=== PATIENT | male | born 1955 | race Caucasian/White ===

== ENCOUNTER 2025-04-26 13:08 | Outpatient (AMB) | payer MEDICARE, BC, SELFPAY ==
--- NOTE | 2025-04-26 13:10 | MHC.OFFVIS ---
Intake Visit Reasons: balance problem Allergies lisinopril Allergy (Verified 04/25/25 17:50) Cough HPI Comments Details: This is a 70-year-old man with a history of atrial fibrillation on anticoagulation, hypertension, type 2 diabetes, depression and a long history of alcohol abuse drinking 8-10 drinks a day for most of his life. He comes in because of multiple falls, mostly down the stairs over the last 10 years with increased frequency of falling, with the last fall being in December 2024. No injuries are reported. In the last year, he has noted increased problems with his balance on level ground if it is uneven. Some days he can walk better. He denies any numbness or paresthesia in his feet and legs. There is no family history of ataxia. He has never had a stroke. [facility] Medical History (Updated 04/26/25 @ 13:33 by Augusto Owens MD) Pure hypercholesterolemia Essential (primary) hypertension Mitral valve disorder Chest pain Atrial fibrillation Hypothyroid Rosacea Retina disorder Erectile dysfunction Diabetes mellitus with renal complications Diabetes mellitus with peripheral vascular disease BPH (benign prostatic hyperplasia) Diverticulosis Obesity (BMI 30.0-34.9) Enlarged prostate OTILIO (obstructive sleep apnea) Proteinuria Type 2 diabetes mellitus with obesity Moderate major depression Alcohol dependence in remission SOB (shortness of breath) CHF (congestive heart failure) Abnormal EKG Insomnia Surgical History (Updated 04/25/25 @ 17:47 by Santa Dougherty MA) Hx of tonsillectomy H/O knee surgery H/O colonoscopy Hx of cataract extraction Family History (Updated 04/25/25 @ 17:50 by Santa Dougherty MA) Mother Coronary artery disease Father Atrial fibrillation Daughter Asthma Brother Hypertension Brother Prostate cancer Social History (Updated 04/25/25 @ 17:48 by Santa Dougherty MA) Alcohol intake: current Patient Tobacco Use Status: Never used Tobacco Review of Systems Const Details: Sleep Difficulty getting to sleep??denies.??Difficulty maintaining sleep??denies?.??Urge to move legs??denies.?? Teeth grinding??denies.??Shouting or Kicking during sleep??denies.??Abnormal behavior during sleep??denies.?? Excessive sleep??denies.??Snoring??denies.??Daytime sleepiness??denies.? General/Constitutional Change in appetite??denies.??Chills??denies.??Fatigue??denies.??Fever??denies.??Weight gain??denies.??Weight loss??denies.? Ophthalmologic Blurred vision??denies.??Diminished visual acuity??denies.? ENT Stuffiness??denies.??Decreased hearing??denies.??Dry mouth??denies.??Ear pain??denies.??Nosebleed??denies.?? Ringing in the ears??denies.??Sinus pain??denies.??Sore throat??denies.??Swollen glands??denies.? Endocrine Cold intolerance??denies.??Excessive thirst??denies.??Frequent urination??denies.??Heat intolerance??denies.? Respiratory Shortness of breath??denies.??Chest pain??denies.??Cough??denies.? Breast Breast lump??denies.??Nipple discharge??denies.? Cardiovascular Chest pain at rest??denies.??Chest pain with exertion??denies.??Claudication??denies.??Dizziness??denies.??Fluid accumulation in the legs??denies.??Irregular heartbeat??denies.??Palpitations??denies.? Gastrointestinal Abdominal pain??denies.??Constipation??denies.??Diarrhea??denies.?? Difficulty swallowing??denies.??Heartburn??denies.??Nausea??denies.??Rectal bleeding??denies.? Hematology Easy bruising??denies.??Prolonged bleeding??denies.? Genitourinary Frequent urination??denies.??Urgency??denies.??Incontinence??denies.??Erectile Dysfunction??denies.? Musculoskeletal Neck pain??denies.??Back pain??denies.??Muscle aches??denies.??Painful joints??denies.??Sciatica??denies.??Weakness??denies.? Podiatric Difficulty walking??denies.??Foot numbness??denies.? Neurologic Difficulty swallowing??denies.??Balance difficulty??admits.??Coordination??normal.? Difficulty speaking??denies.??Dizziness??denies.??Fainting??denies.??Gait abnormality??admits.??Headache??denies.? Loss of strength??denies.??Loss of use of extremity??denies.??Low back pain??denies.?? Memory loss??denies.??Seizures??denies.??Tics??denies.??Tingling/Numbness??denies.??Transient loss of vision??denies.??Tremor??denies.? Psychiatric Anxiety??denies.??Auditory/visual hallucinations??denies.??Delusions??denies.??Depressed mood?admits.??Stressors??denies.??Substance abuse??alcohol.??Suicidal thoughts??denies. Physical Exam Neuro Other: Abnormal neurological findings:??Truncal ataxia on tandem walking ? Mental Status:?alert and oriented X 3,?Normal attention, orientation, memory and affect.? Cranial Nerves:?Pupils are equal, round and reactive to light. Fundoscopy shows normal disc bilaterally. External ocular muscles are intact. Visual carson are full, no ptosis. Face is symmetrical, no facial weakness or droop. Facial sensations are normal. Tongue protrudes in midline. Palate elevates symmetrically. Shoulder shrugging is normal..? Motor Examination:?Normal muscle tone, bulk and strength,?No atrophy or fasciculations,?No drift of the extended upper extremities,?Deep tendon reflexes are 2+and absent ankle reflexes.?Plantars are equivocal extensors bilaterally. Motor Strength:? Proximal Muscles (out of 5):?5 Distal Muscles (out of 5):?5 Neck Flexors (out of 5):?5 Neck Extensors (out of 5):?5 Deltoid (out of 5):?5 Biceps (out of 5):?5 Triceps (out of 5):?5 Serratus Anterior (out of 5):?5 Wrist Extensors (out of 5):?5 APB (out of 5):?5 Finger Spread (out of 5):?5 Ileopsoas (out of 5):?5 Quadriceps (out of 5):?5 Hamstrings (out of 5):?5 Tibialis Anterior (out of 5):?5 Peronei (out of 5):?5 EDB (out of 5):?5 Gastrocnemius (out of 5):?5 Straight Leg Raising:?90 degrees.? Sensory Exam:?Normal light touch, temperature, pinprick, vibration and joint-position sensations?,?Rhomberg sign is absent.? Coordination:?no ataxia,?no titubation,?[id number], [id number] test and rapid alternating movements were normal.? Gait Exam:?broad based gait with tandem ataxia.? Cerebellar Signs:?Brkclh-[id number]-[id number] and tbhk-ey-hjqv is normal,?no dysdiadochokinesia?.? Extrapyramidal System:?No tremor, rigidity with normal facial expressions,?No bradykinesia, no bradyphrenia. Normal arm swing and posture. No propulsion or retropulsion.? Speech:?Normal,?no dysphasia or dysarthria.. Mini Mental Status Exam Level of Consciousness:?Alert.? Orientation:?Knows correct year, month, date, day and season,?Knows correct city, county and state. Knows correct location and floor.? Registration:?Able to register 3 objects.? Attention:?Serial 7's performed accurately.? Recall:?Able to recall 3 out of 3 objects.? Language:?Normal spontaneous speech, fluency, repetition, ,naming, comprehension, reading and writing.? Total Score:?30/30. 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
--- OUTSIDE RECORDS SUMMARY | 2025-04-26 14:11 | XMS_ITS | Clinical Summary ---
Author Organization [facility] [address] [place] Address [address] [place] [address] Phone Care Team Providers Care Professor Of Theater Name Role Phone Fredrick Corral MD Primary Care Provider [phone] Allergies Active Allergy Reactions Criticality Noted Date Comments Lisinopril Cough,Other Low 05/22/2016 cough Medications coffee xt/phosphatidyl serine (NEURIVA ORIGINAL ORAL) Take 1 capsule by mouth 1 (one) time each day. Active benzonatate (TESSALON) 100 mg capsule Take 1 capsule (100 mg total) by mouth. 06/25/20 24 Active loratadine (CLARITIN) 10 mg tablet Take 1 tablet (10 mg total) by mouth. Active atenoloL (TENORMIN) 100 mg tabletIndication s:Essential (primary) hypertension Take 1 tablet (100 mg total) by mouth 1 (one) time each day. 90 tablet 1 10/29/19 25 Active atorvastatin (LIPITOR) 80 mg tablet Take 1 tablet (80 mg total) by mouth 1 (one) time each day. 90 each 1 10/29/19 25 025 Active doxycycline (ORACEA) 40 mg capsule Take 1 capsule (40 mg total) by mouth 1 (one) time each day in the morning. 90 each 10/29/19 25 025 Active metFORMIN XR (GLUCOPHAGE-XR) 500 mg 24 hr tablet Take 1 tablet (500 mg total) by mouth 1 (one) time each day. 90 each 1 10/29/19 25 025 Active Synthroid 100 mcg tablet Take 1 tablet (100 mcg total) by mouth 1 (one) time each day. 90 tablet 1 10/29/19 25 Active tadalafiL (CIALIS) 5 mg tablet Take 1 tablet (5 mg total) by mouth 1 (one) time each day. 90 each 1 10/29/19 25 025 Active traZODone (DESYREL) 50 mg tabletIndication s:Major depressive disorder, recurrent, moderate (CMS/HCC V24, CMS/HCC V28) Take 1 tablet (50 mg total) by mouth at bedtime. 90 tablet 1 10/29/19 25 025 Active docosahexaenoic acid/epa (FISH OIL ORAL) Take by mouth. Active multivit-min/fol ic acid/lutein (CENTRUM SILVER ORAL) Take by mouth. Active apixaban (Eliquis) 5 mg tabletIndication s:Atrial fibrillation, unspecified type (CMS/HCC V24, CMS/HCC V28) Take 1 tablet (5 mg total) by mouth 2 (two) times a day. 180 each 3 02/29/20 25 Active sertraline (ZOLOFT) 100 mg tablet TAKE 1 TABLET DAILY 90 tablet 1 03/22/20 25 Active losartan (COZAAR) 25 mg tablet TAKE 1 TABLET DAILY 90 tablet 1 03/22/20 25 Active magnesium aspart,citrate,o xide 400 mg magnesium capsuleIndicatio ns:Hypomagnesemi a Take 1 capsule by mouth at bedtime. 90 capsule 1 04/08/20 25 Active furosemide (LASIX) 40 mg tablet TAKE 1 TABLET BY MOUTH 1 TIME EACH DAY. 90 tablet 04/13/20 25 Active furosemide (LASIX) 40 mg tablet Take 1 tablet (40 mg total) by mouth 1 (one) time each day. 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 I reconnected the seen in my office by asking him to take a couple of heart models off of a low stoop and placed him on the countertop. He bent over and immediately held his breath for at least 10 seconds before reporting dyspnea. He has negligible breathlessness walking on an incline though a flight of stairs has been associated with mild fleeting breathlessness in the setting of deconditioning. Orders: ECG 12 lead Transthoracic echocardiogram (TTE) complete with PRN contrast, bubble, strain, and 3D order panel; Future Alcohol dependence in remission ([facility] V24, S/[facility] V28) 08/03/2020 Assessment & Plan (11/16/2024 3:21 PM EST): I have encouraged the patient to reduce alcohol consumption. I will be rechecking his echocardiogram to rule out the development of systolic dysfunction. Moderate major depression ([facility] V24, [facility] V28) 10/29/2019 Type 2 diabetes mellitus wit h obesity ([facility] V24, [facility] V28) 10/29/2019 Proteinuria 08/27/2018 Obstructive sleep apnea 06/24/2017 Overview (07/05/2024): Did not raquel cpap SMS Home Polysomnogram: Date 06/21/2017; AHI 9, Unclassified apneas 1; Obstructive apneas 29; Central apneas 1; Mixed apneas 0; hypopneas 21; average oxygen saturation 95% (lowest 85% without saturations <88% for 5% or more of study) Assessment & Plan (11/16/2024 3:21 PM EST): Orders: ECG 12 lead Enlarged prostate 02/17/2017 Overview (07/05/2024): Saw urology Obesity (BMI 30.0-34.9) 05/22/2016 Diverticulosis 08/20/2015 BPH (benign prostatic hyperplasia) 12/15/2014 Diabetes mellitus with perip heral vascular disease ([facility] V24, [facility] V28) 12/15/2014 Diabetes mellitus with renal complications ([facility] V24, [facility] V28) 12/15/2014 Erectile dysfunction 12/15/2014 Retina disorder 12/15/2014 Rosacea 12/15/2014 Hypothyroid 12/04/2012 Assessment & Plan (04/06/2025 10:28 AM EDT): Depression 07/04/2008 Alcohol abuse 01/17/2006 Atrial fibrillation (CMS/HCC V24, CMS/HCC V28) 0 01/17/2006 Overview (11/15/2024): Normal EF by echo June 2021, biatrial enlargement, LVH. No significant valve disease. Patient has persistent atrial fibrillation treated with rate control and anticoagulation in the form of Eliquis. Assessment & Plan (04/06/2025 10:28 AM EDT): Assessment & Plan (11/16/2024 3:21 PM EST): Continue with rate control and systemic anticoagulation. Atrial fibrillation may potentially be contributing to mild breathlessness. I suspect that the patient's peripheral edema is largely due to venous insufficiency rather than congestive heart failure. He does not have jugular venous distention or HJR and he is not had evidence of pulmonary vascular congestion in the past. I will update his echocardiogram. Orders: ECG 12 lead Transthoracic echocardiogram (TTE) complete with PRN contrast, bubble, strain, and 3D order panel; Future Chest pain 01/17/2006 Overview (07/05/2024): 04/30--Abnormal mibi, Cath neg Mitral valve disorder 01/17/2006 Overview (07/05/2024): IMO update Essential hypertension, benign 01/17/2006 Overview (11/15/2024): Longstanding HTN with a favorable response to medical therapy. Excessive salt ingestion has likely been a contributor. Assessment & Plan (11/16/2024 3:21 PM EST): We will continue the present medical therapy. I had an extensive conversation with the patient regarding sodium consumption and the presence of sodium and foods which are commonly ingested in his diet. Orders: ECG 12 lead Pure hypercholesterolemia 01/17/2006 Assessment & Plan (04/06/2025 10:28 AM EDT): Orders: Lipid panel with reflex to direct LDL; Future Encounters Date Type Department Care Team Description 04/22/2025 Telephone Internal Medicine - [address] [phone] Kaitlyn French MA faxed form ([facility]) 04/05/2025 3:30 PM EDT Office Visit Internal Medicine - [address] [phone] Shruthi Morgan PA Routine general medical examination at a [facility] facility (Primary Dx); Type 2 diabetes mellitus without complication, without long-term current use of insulin ([facility] V24, CMS/[facility] V28); Primary hypertension; Atrial fibrillation, unspecified type (CMS/HCC V24, CMS/HCC V28); Pure hypercholesterolemia; Hypothyroidism, unspecified type; Anxiety and depression 02/28/2025 3:30 PM EDT Office Visit Internal Medicine [address] [phone] Manuel Justin NP Balance problem (Primary Dx); Insomnia, unspecified type; Major depressive disorder, recurrent, moderate (CMS/HCC V24, CMS/HCC V28); Congestive heart failure, unspecified HF chronicity, unspecified heart failure type (CMS/HCC V24, CMS/HCC V28); Atrial fibrillation, unspecified type (CMS/HCC V24, CMS/HCC V28); Rosacea; Essential (primary) hypertension; Pure hypercholesterolemia; Diabetes mellitus with peripheral vascular disease (CMS/HCC V24, CMS/HCC V28); Hypothyroidism, unspecified type; Benign prostatic hyperplasia with lower urinary tract symptoms, symptom details unspecified from Last 3 Months Immunizations Name Administration Dates Next Due Influenza trivalent, with pr eservative (Fluzone; Afluria) 6mo and older 08/23/2024 66. com SARS-CoV-2 COVID-19, mRNA, LNP-S, preservative free 08/23/2024 Surgical History Surgery Date Site/Laterality Comments KNEE SURGERY PROCEDURE: HISTORICAL KNEE SURGERY; COMMENT: Left arthroscopy TONSILLECTOMY PROCEDURE: HISTORICAL TONSILLECTOMY CATARACT EXTRACTION PROCEDURE: HISTORICAL CATARACT REMOVAL; COMMENT: bilat COLONOSCOPY 07/16/10 PROCEDURE: HISTORICAL COLONOSCOPY; COMMENT: adenoma and tics; repeat in five years COLONOSCOPY 08/16/15 PROCEDURE: HISTORICAL COLONOSCOPY; COMMENT: tics; repeat in ten yrs Medical History Medical History Date Comments Atrial fibrillation (CMS/HCC V24, CMS/HCC V28) 01/17/2006 DX:Atrial fibrillation (HCC) ; COMMENT: Normal EF by echo 2004 Essential hypertension, benign 01/17/2006 D X:Essential hypertension, benign Alcohol abuse, unspecified 01/17/2006 DX:Al cohol abuse, unspecified Pure hypercholesterolemia 01/17/2006 DX:Pur e hypercholesterolemia Mitral valve disorders(424.0) 01/17/2006 DX :Mitral valve disorders(424.0); COMMENT: Abx prophylaxis Personal history of colonic polyps 01/17/2006 DX:Personal history of colonic polyps Chest pain, unspecified 01/17/2006 DX:Chest pain, unspecified; COMMENT: 04/30--Abnormal mibi, Cath neg BPH (benign prostatic hyperplasia) 12/15/2014 DX:BPH (benign prostatic hyperplasia) Erectile dysfunction 12/15/2014 DX:Erectile dysfunction Retina disorder 12/15/2014 DX:Retina disord er Diverticulosis 08/20/2015 DX:Diverticulosi s Enlarged prostate 02/17/2017 DX:Enlarged pr ostate; COMMENT: Saw urology Depressive disorder DX:Depressiv e disorder Family History Medical History Relation Name Comments Hypertension Brother Prostate cancer Brother Asthma Daughter Other: Atrial Fibrillation Father Coronary artery disease Mother 50's No Known Problems Sister Relation Name Status Comments Brother Alive Daughter Alive Father Mother Sister Alive Social History Tobacco Use Types Packs/Day Years Used Date Smoking Tobacco: Never Smokeless Tobacco: Never Tobacco Cessation:Counseling Given: Not Answered Alcohol Use Standard Drinks/Week Comments Yes 0 (1 standard drink = 0.6 oz pure alcohol) intermittent - a week or to alot, and then a week or 2 without any Sex and Gender Information Value Date Recorded Sex Assigned at Not on file Legal Sex Male 6:08 PM EST Gender Identity Not on file Sexual Orientation Not on file Obstetrics History Last Filed Vital Signs Vital Sign Reading Time Taken Comments Blood Pressure 122/82 04/05/2025 3:17 PM EDT Pulse 68 04/05/2025 3:17 PM EDT Temperature 36.9 C (98.4 F) 04/05/2025 3:17 PM EDT Respiratory Rate - - Oxygen Saturation 98% 04/05/2025 3:17 PM EDT Inhaled Oxygen Concentration - - Weight 93.4 kg (206 lb) 04/05/2025 3:17 PM EDT Height 180.3 cm (5' 11 ) 04/05/2025 3:17 PM EDT Body Mass Index 28.73 04/05/2025 3:17 PM EDT Plan of Treatment Upcoming Encounters Date Type Department Care Team (Late st Contact Info) Description 05/16/2025 3:30 PM EDT Ancillary Procedure [facility] [address] [facility] [address] [place] [phone] 05/26/2025 3:10 PM EDT Office Visit [facility] - [facility] [address] [place] [phone] Kyle Schaeffer NP [address] [place] [address] [address] [place] [address] 06/30/2025 2:00 PM EDT Office Visit Internal Medicine - [place] [address] [facility] [address] [place] [phone] Manuel Justin NP [address] [facility] [address] [place] [address] Health Maintenance Due Date Last Done Comments Hepatitis A Vaccines (1 of 2 - Risk 2-dose series) 1974 Social Influencers of Health Screening 10/05/2022 Diabetes: Annual Foot Exam 11/07/2023 11/07/2022 COVID-19 Vaccine ( season) 2024 08/23/2024, 08/11/2023, 09/07/2022, Additional history exists Influenza Vaccine (#1) 2025 , 08/11/2023, 07/08/2022, Additional history exists Colorectal Cancer Screening: Colonoscopy 08/16/2025 08/16/2015 Diabetes: Blood Sugar Control Test (HGBA1C) 10/07/2025 04/07/2025, 10/29/2024, 06/25/2024, Additional history exists Diabetes: Annual Retina Eye Exam 02/17/2026 02/17/2025, 07/27/2024, 08/03/2020 Depression Screening 04/05/2026 04/05/2025, 10/15/20 23 Falls Risk Assessment 04/05/2026 04/05/2025, 023 Medicare Annual Wellness Visit 04/05/2026 04/05/2025 Diabetes: Annual Urine Albumin-Creatinine Ratio (uACR) 04/07/2026 04/07/2025, 02/24/2024 Diabetes: Annual GFR (Glomerular Filtration Rate) 04/07/2026 04/07/2025, 10/29/2024, 06/25/2024, Additional history exists Hypertension/CHF/CAD Annual BMP Blood Test 04/07/2026 04/07/2025, 10/29/2024, 06/25/2024, Additional history exists Cholesterol Screening (Lipid Panel) 04/07/2030 04/07/2025, 02/24/2024, 02/24/2024 DTaP,Tdap,and Td Vaccines (4 - Td or Tdap) 09/27/2031 09/27/2021, 09/13/2011, 07/31/2004 Hepatitis C Screening Completed 08/26/2013 Pneumococcal Vaccine: 50+ Years Completed 10/29/2019, 07/22/2019, 07/13/2018, Additional history exists Zoster Vaccines Completed 04/24/2020, 01/2020, 06/30/2013 RSV Immunization Adult Patients Completed 09/10/2023 HIB Vaccines Aged Out No longer eligi ble based on patient's age to complete this topic HPV Vaccines Aged Out No longer eligi ble based on patient's age to complete this topic Hepatitis B Vaccines Aged Out No long er eligible based on patient's age to complete this topic IPV Vaccines Aged Out No longer eligi ble based on patient's age to complete this topic MMR Vaccines Aged Out No longer eligi ble based on patient's age to complete this topic Meningococcal ACWY Vaccine Aged Out N o longer eligible based on patient's age to complete this topic Meningococcal B Vaccine Aged Out No l onger eligible based on patient's age to complete this topic RSV Immunization Patients Under 20 months Aged Out No longer eligible based on patient's age to complete this topic Varicella Vaccines Aged Out No longer eligible based on patient's age to complete this topic Procedures Procedure Name Priority Date/Time Associated Diagnosis Comments MICROALBUMIN CREATININE URINE RATIO Routine 04/07/2025 10:54 AM EDT Type 2 diabetes mellitus without complication, without long-term current use of insulin ([facility] V24, [facility] V28) Primary hypertension CBC WITH AUTO DIFFERENTIAL Routine 04/07/2025 10:18 AM EDT Type 2 diabetes mellitus without complication, without long-term current use of insulin ([facility] V24, [facility] V28) COMPREHENSIVE METABOLIC PANEL Routine 04/07/2025 10:18 AM EDT Type 2 diabetes mellitus without complication, without long-term current use of insulin ([facility] V24, CMS/[facility] V28) Primary hypertension HEMOGLOBIN A1C Routine 04/07/2025 10:18 AM EDT Type 2 diabetes mellitus without complication, without long-term current use of insulin ([facility] V24, [facility] V28) VITAMIN B12 Routine 04/07/2025 10:18 AM EDT Type 2 diabetes mellitus without complication, without long-term current use of insulin ([facility] V24, [facility] V28) MAGNESIUM Routine 04/07/2025 10:18 AM EDT Primary hypertension LIPID PANEL WITH REFLEX TO DIRECT LDL Routine 04/07/2025 10:18 AM EDT Pure hypercholesterolemia CBC AND DIFFERENTIAL Routine 04/07/2025 10:18 AM EDT Type 2 diabetes mellitus without complication, without long-term current use of insulin ([facility] V24, [facility] V28) EXTERNAL DIABETIC RETINA EYE EXAM 02/17/2025 DEPRESSION SCREENING Routine 10/15/2023 FALLS RISK ASSESSMENT Routine 10/15/2023 DIABETES FOOT EXAM Routine 11/07/2022 COLONOSCOPY Routine 08/16/2015 HEPATITIS C SCREENING Routine 08/26/2013 from Last 3 Months or Most Recently Relevant to Health Maintenance Results * (ABNORMAL) Microalbumin creatinine urine ratio (04/07/2025 10:54 AM EDT) Creatinine, Urine 148.0 mg/dL LAB CHEMISTRY METHOD 04/07/2025 12:49 PM EDT [facility] Microalb, Ur 41.4(H) 0.0 - 29.0 mg/L LAB CHEMISTRY METHOD 04/07/2025 12:49 PM EDT [facility] Microalb/Crea t Ratio 28 <30 mg/g creat LAB CHEMISTRY METHOD 04/07/2025 12:49 PM EDT [facility] Urine Urine specimen obtained by clean catch procedure / Unknown Non-blood Collection / Unknown 04/07/2025 10:54 AM EDT 04/07/2025 10:54 AM EDT Shruthi FREEDMAN LAB URINE ORDERABLES Fin al Result [facility] [address] [place] [address], * (ABNORMAL) Lipid panel with reflex to direct LDL (04/07/2025 10:18 AM EDT) Cholesterol 110 0 - 200 mg/dL LAB CHEMISTRY METHOD 04/07/2025 1:04 PM EDT [facility] Triglycerides 119 0 - 150 mg/dL LAB CHEMISTRY METHOD 04/07/2025 1:04 PM [facility] HDL 38(L) >=40 mg/dL LAB CHEMISTRY METHOD 04/07/2025 1:04 PM [facility] LDL Calculated 48 0 - 100 mg/dL LAB CHEMISTRY METHOD 04/07/2025 1:04 PM [facility] VLDL Cholesterol Brad 23.8 mg/dL LAB CHEMISTRY METHOD 04/07/2025 1:04 PM [facility] Non HDL Chol. (LDL+VLDL) 72 <145 mg/dL LAB CHEMISTRY METHOD 04/07/2025 1:04 PM [facility] Chol/HDL Ratio 2.9 0.0 - 4.4 LAB CHEMISTRY METHOD 04/07/2025 1:04 PM [facility] Blood Venous blood specimen / Unknown Venipuncture / Unknown 04/07/2025 10:18 AM EDT 04/07/2025 10:18 AM EDT us Shruthi FREEDMAN LAB BLOOD ORDERABLES Fin al Result [facility] [address] [place] [address], * (ABNORMAL) CBC auto differential (04/07/2025 10:18 AM EDT) WBC 5.7 4.8 - 10.8 K/mcL LAB HEMETOLOGY METHOD 04/07/2025 11:51 AM [facility] RBC 3.70(L) 4.50 - 5.50 M/mcL LAB HEMETOLOGY METHOD 04/07/2025 11:51 AM [facility] Hemoglobin 12.3(L) 13.5 - 17.5 g/dL LAB HEMETOLOGY METHOD 04/07/2025 11:51 AM [facility] Hematocrit 35.8(L) 42.0 - 54.0 % LAB HEMETOLOGY METHOD 04/07/2025 11:51 AM [facility] MCV 97.5 79.0 - 98.0 FL LAB HEMETOLOGY METHOD 04/07/2025 11:51 AM [facility] MCH 33.5(H) 27.0 - 32.0 pcg LAB HEMETOLOGY METHOD 04/07/2025 11:51 AM [facility] MCHC 34.4 32.0 - 37.0 g/dL LAB HEMETOLOGY METHOD 04/07/2025 11:51 AM [facility] RDW 13.2 11.0 - 15.0 % LAB HEMETOLOGY METHOD 04/07/2025 11:51 AM [facility] Platelets 147 130 - 400 K/mcL LAB HEMETOLOGY METHOD 04/07/2025 11:51 AM [facility] MPV 10.3 7.0 - 11.0 FL LAB HEMETOLOGY METHOD 04/07/2025 11:51 AM [facility] NRBC 0.0 <1.0 % LAB HEMETOLOGY METHOD 04/07/2025 11:51 AM [facility] NRBC Absolute 0.00 <0.10 K/mcL LAB HEMETOLOGY METHOD 04/07/2025 11:51 AM [facility] Neutrophils Relative 60.7 % LAB HEMETOLOGY METHOD 04/07/2025 11:51 AM [facility] Lymphocytes Relative 29.4 % LAB HEMETOLOGY METHOD 04/07/2025 11:51 AM [facility] Monocytes Relative 7.9 % LAB HEMETOLOGY METHOD 04/07/2025 11:51 AM [facility] Eosinophils Relative 1.6 % LAB HEMETOLOGY METHOD 04/07/2025 11:51 AM [facility] Basophils Relative 0.2 % LAB HEMETOLOGY METHOD 04/07/2025 11:51 AM EDT [facility] Immature Granulocytes Relative 0.2 % LAB HEMETOLOGY METHOD 04/07/2025 11:51 AM EDT [facility] Neutrophils Absolute 3.45 1.50 - 7.00 K/mcL LAB HEMETOLOGY METHOD 04/07/2025 11:51 AM EDT [facility] Lymphocytes Absolute 1.67 1.00 - 5.00 K/mcL LAB HEMETOLOGY METHOD 04/07/2025 11:51 AM EDT [facility] Monocytes Absolute 0.45 0.20 - 1.00 K/mcL LAB HEMETOLOGY [facility]07[facility] Eosin[facility] Absolute 0.09 0.00 - 0.50 K/mcL LAB HEMETOLOGY METHOD 04/07/2025 11:51 AM EDT [facility] Basophils Absolute 0.01 0.00 - 0.20 K/mcL LAB HEMETOLOGY METHOD 04/07/2025 11:51 AM EDT [facility] Immature Granulocytes Absolute 0.01 0.00 - 0.03 K/mcL LAB HEMETOLOGY METHOD 04/07/2025 11:51 AM [facility] Blood Venous blood specimen / Unknown Venipuncture / Unknown 04/07/2025 10:18 AM EDT 04/07/2025 10:18 AM EDT us Shruthi FREEDMAN LAB BLOOD ORDERABLES Fin al Result [facility] [address] [place] [address], * (ABNORMAL) Magnesium (04/07/2025 10:18 AM EDT) Magnesium 1.7(L) 1.9 - 2.6 mg/dL LAB CHEMISTRY METHOD 04/07/2025 12:19 PM EDT [facility] Blood Venous blood specimen / Unknown Venipuncture / Unknown 04/07/2025 10:18 AM EDT 04/07/2025 10:18 AM EDT us Shruthi FREEDMAN LAB BLOOD ORDERABLES Fin al Result Performing Organization Address [facility]/ZIP Co de Phone Number [facility] [address] [place] [address], [place] [phone] * Hemoglobin A1c (04/07/2025 10:18 AM EDT) [facility] Hemoglobin A1C 6.0 <6.5 % LAB CHEMISTRY METHOD 04/07/2025 1:55 PM EDT [facility] Mean Bld Glu Estim. 126 mg/dL LAB CHEMISTRY METHOD 04/07/2025 1:55 PM EDT [facility] Blood Venous blood specimen / Unknown Venipuncture / Unknown 04/07/2025 10:18 AM EDT 04/07/2025 10:18 AM EDT us Shruthi FREEDMAN LAB BLOOD ORDERABLES Fin al Result Performing Organization Address [facility]/ZIP Co de Phone Number [facility] [address] [place] [address], [place] [phone] * Vitamin B12 (04/07/2025 10:18 AM EDT) Pathologist [facility] Vitamin B-12 412 250 - 900 pcg/mL LAB CHEMISTRY METHOD 04/07/2025 1:04 PM EDT [facility] Blood Venous blood specimen / Unknown Venipuncture / Unknown 04/07/2025 10:18 AM EDT 04/07/2025 10:18 AM EDT us Shruthi FREEDMAN LAB BLOOD ORDERABLES Fin al Result [facility] [address] [place] [address], * (ABNORMAL) Comprehensive metabolic panel (04/07/2025 10:18 AM EDT) Sodium 137 133 - 145 mmol/L LAB CHEMISTRY METHOD 04/07/2025 1:04 PM [facility] Potassium 4.0 3.5 - 5.5 mmol/L LAB CHEMISTRY METHOD 04/07/2025 1:04 PM [facility] Chloride 100 96 - 110 mmol/L LAB CHEMISTRY METHOD 04/07/2025 1:04 PM [facility] CO2 31 21 - 32 mmol/L LAB CHEMISTRY METHOD 04/07/2025 1:04 PM [facility] Anion Gap 6 3 - 11 LAB CHEMISTRY METHOD 04/07/2025 1:04 PM [facility] Glucose 121(H) 70 - 100 mg/dL LAB CHEMISTRY METHOD 04/07/2025 1:04 PM [facility] BUN 9 5 - 25 mg/dL LAB CHEMISTRY METHOD 04/07/2025 1:04 PM [facility] Creatinine 0.88 0.70 - 1.30 mg/dL LAB CHEMISTRY METHOD 04/07/2025 1:04 PM [facility] eGFR 91 >=60 mL/min/1. 73m2 LAB CHEMISTRY METHOD 04/07/2025 1:04 PM [facility] Comment:Calculation based on the Chronic Kidney Disease Epidemiology Collaboration (CKD-EPI) equation refit without adjustment for race. BUN/Creatinine Ratio 10.2 LAB CHEMISTRY METHOD 04/07/2025 1:04 PM [facility] Calcium 8.8 8.5 - 10.5 mg/dL LAB CHEMISTRY METHOD 04/07/2025 1:04 PM EDT [facility] AST (SGOT) 22 10 - 42 unit/L LAB CHEMISTRY METHOD 04/07/2025 1:04 PM [facility] ALT (SGPT) 29 10 - 60 unit/L LAB CHEMISTRY METHOD 04/07/2025 1:04 PM [facility] Alkaline Phosphatase 102 42 - 121 unit/L LAB CHEMISTRY METHOD 04/07/2025 1:04 PM T [facility] Total Protein 6.4 6.0 - 8.0 g/dL LAB CHEMISTRY METHOD 04/07/2025 1:04 PM [facility] Albumin 3.7 3.2 - 5.0 g/dL LAB CHEMISTRY METHOD 04/07/2025 1:04 PM [facility] Total Bilirubin 0.6 0.0 - 1.4 mg/dL LAB CHEMISTRY METHOD 04/07/2025 1:04 PM [facility] Blood Venous blood specimen / Unknown Venipuncture / Unknown 04/07/2025 10:18 AM EDT 04/07/2025 10:18 AM EDT us [facility] LAB BLOOD ORDERABLES Fin al Result [facility] [address] [place] [address], * External Diabetic Retina Eye Exam Report (02/17/2025) Anatomical Region Laterality Modality Ultrasound us Provider [facility] US PROCEDURES Final Result * Falls Risk Assessment (10/15/2023) Falls Risk Assessment Abstracted Historical Provider HEALTH MAINTENANCE Final Result * Depression Screening (10/15/2023) Depression Screening 1 yr fu us Historical Provider HEALTH MAINTENANCE Final Result * Diabetes Foot Exam (11/07/2022) Diabetes: Annual Foot Exam 1 yr fu Historical Provider HEALTH MAINTENANCE Final Result * Colonoscopy (08/16/2015) Colonoscopy 10 yr fu Anatomical Region Laterality Modality Other Historical Provider HEALTH MAINTENANCE Final Result * Hepatitis C Screening (08/26/2013) Pathologist [facility] Hepatitis C Screening neg Historical Provider HEALTH MAINTENANCE Final Result from Last 3 Months or Most Recently Relevant to Health Maintenance Insurance MEDICARE [facility] Care Teams Professor Of Theater Relationship Specialty Start Date End Date Fredrick Corral MD [address] [facility] [address] [place] [address] PCP - General 04/08/24
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
== END 2025-04-26 16:08 | disposition home or self-care (01) ==
LOC: HO.HSM 13:08
PROVIDERS: PCP Internal Medicine; Visit Provider Psychiatry & Neurology Neurology
DX: G11.9 Hereditary ataxia, unspecified (principal); G95.9 Disease of spinal cord, unspecified
CPT/HCPCS: 99203

== ENCOUNTER → 2025-04-26 13:08 | Outpatient (BNVA) | payer MEDICARE, BC, SELFPAY | PROVIDERS: PCP Internal Medicine; Visit Provider Psychiatry & Neurology Neurology | DX: R26.89 Other abnormalities of gait and mobility (principal); Z91.81 History of falling; I48.91 Unspecified atrial fibrillation; I10 Essential (primary) hypertension; E11.9 Type 2 diabetes mellitus without complications; F32.A Depression, unspecified; F10.21 Alcohol dependence, in remission | CPT/HCPCS: 99202 ==

== ENCOUNTER 2025-05-14 10:02 | Outpatient (REF) | payer MEDICARE, BC, SELFPAY ==
--- NOTE | ~2025-05-14 | MR_ITS ---
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 Parenchymal volume loss with compensatory prominence of the ventricles and CSF spaces. No acute infarcts, intracranial hemorrhage, midline shift or hydrocephalus. Vascular flow voids are intact. The orbits are normal. The sinuses and mastoid air cells are clear. No focal bone lesion. IMPRESSION: No acute intracranial abnormality. This document has been electronically signed by: Jair Kay MD on 05/16/2025 18:46:59
--- NOTE | ~2025-05-14 | MR_ITS ---
CLINICAL HISTORY: G95.9 - Disease of spinal cord, unspecified MR cervical spine without gadolinium Comparison: None provided Findings: Vertebral alignment is within normal limits. No acute fractures or pathologic bone lesions. Mild multilevel degenerative changes: C3-C4: Disc bulge asymmetric to the left causes mild left neural foraminal stenosis. C5-C6: Uncovertebral and facet arthropathy causes mild bilateral neural foraminal stenosis. C6-C7: Uncovertebral arthropathy causes mild bilateral neural foraminal stenosis. Visualized intracranial contents are unremarkable. Soft tissues of the neck are normal. Cervical cord normal. IMPRESSION: No acute findings. Mild multilevel degenerative changes as above. This document has been electronically signed by: Ricardo Liu MD on 05/16/2025 19:07:20
== END 2025-05-14 10:03 | disposition home or self-care (01) ==
LOC: HO.MRI 10:02
PROVIDERS: PCP Internal Medicine; Visit Provider Psychiatry & Neurology Neurology
DX: G31.2 Degeneration of nervous system due to alcohol (principal); G95.9 Disease of spinal cord, unspecified; F10.20 Alcohol dependence, uncomplicated
CPT/HCPCS: 70551; 72141

== ENCOUNTER → 2025-05-14 10:09 | Outpatient (BNV) | payer MEDICARE, BC, SELFPAY | PROVIDERS: PCP Internal Medicine; Visit Provider Radiology Diagnostic Radiology | DX: M50.30 Other cervical disc degeneration, unspecified cervical region (principal); G31.9 Degenerative disease of nervous system, unspecified | CPT/HCPCS: 70551 ==

== ENCOUNTER 2025-06-08 14:54 | Outpatient (AMB) | payer MEDICARE, BC, SELFPAY ==
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
--- OUTSIDE RECORDS SUMMARY | 2025-06-08 15:00 | XMS_ITS | Clinical Summary ---
Author Organization [facility] [address] [facility] Address [address] [place] [address] Phone Care Team Providers Care Online Content Editor Name Role Phone Fredrick Corral MD Primary Care Provider [phone] Allergies Active Allergy Reactions Criticality Noted Date [...] day. 90 tablet 1 10/29/19 25 Active Synthroid 100 mcg tablet Take 1 tablet (100 mcg total) by mouth 1 (one) time each day. 90 tablet 1 10/29/19 25 Active tadalafiL (CIALIS) 5 mg tablet Take 1 tablet (5 mg total) by mouth 1 (one) time each day. 90 each 1 10/29/19 25 Active traZODone (DESYREL) 50 mg tabletIndication s:Major depressive disorder, recurrent, moderate (CMS/HCC V24, CMS/HCC V28) Take 1 tablet (50 mg total) by mouth at bedtime. 90 tablet 1 10/29/19 25 Active docosahexaenoic acid/epa (FISH OIL ORAL) Take [...] EACH DAY. 90 tablet 04/13/20 25 Active atorvastatin (LIPITOR) 80 mg tablet TAKE 1 TABLET BY MOUTH 1 TIME EACH DAY. 90 tablet 1 05/10/20 25 Active metFORMIN XR (GLUCOPHAGE-XR) 500 mg 24 hr tablet TAKE 1 TABLET BY MOUTH 1 TIME EACH DAY. 90 tablet 1 05/10/20 25 Active doxycycline (ORACEA) 40 mg capsule TAKE 1 CAPSULE BY MOUTH 1 TIME EACH DAY IN THE MORNING. 90 capsule 1 05/21/20 25 Active atorvastatin (LIPITOR) 80 mg tablet Take 1 tablet (80 mg total) by mouth 1 (one) time each day. 90 each 1 10/29/19 25 025 Discontinued doxycycline (ORACEA) 40 mg capsule Take 1 capsule (40 mg total) by mouth 1 (one) time each day in the morning. 90 each 1 10/29/19 25 025 Discontinued metFORMIN XR (GLUCOPHAGE-XR) 500 mg 24 hr tablet Take 1 tablet (500 mg total) by mouth 1 (one) time each day. 90 each 1 10/29/19 25 025 Discontinued Active Problems Problem Noted [...] dependence in remission ([facility] V24, [facility] V28) 08/03/2020 Assessment & Plan (11/16/2024 3:21 PM EST): I have encouraged the patient to reduce alcohol consumption. I will be rechecking his echocardiogram to rule out the development of systolic dysfunction. Moderate major depression ([facility] V24, [facility] V28) 10/29/2019 Type 2 diabetes mellitus wit h obesity ([facility] V24, [facility] V28) 10/29/2019 Proteinuria 08/27/2018 Obstructive sleep apnea [...] heral vascular disease ([facility] V24, [facility] V28) 12/15/2014 Diabetes mellitus with renal complications ([facility] V24, [facility] V28) 12/15/2014 Erectile dysfunction 12/15/2014 Retina disorder 12/15/2014 Rosacea 12/15/2014 Hypothyroid 12/04/2012 Assessment & Plan (04/06/2025 10:28 AM EDT): Depression 07/04/2008 Alcohol abuse 01/17/2006 Atrial fibrillation ([facility] V24, [facility] V28) 0 01/17/2006 Overview (11/15/2024): Normal EF [...] Encounters Date Type Department Care Team Description 05/16/2025 3:30 PM EDT Ancillary Procedure [facility] - [address] [place] [id number] Longstanding persistent atrial fibrillation (CMS/HCC V24, CMS/HCC V28); SOB (shortness of breath) 04/22/2025 Telephone [facility] [place] [address] [facility] [address] [place] [address] Kaitlyn French MA faxed form ([facility]) 04/05/2025 3:30 PM EDT Office Visit [facility] [place] [address] [facility] [address] [place] [address] Shruthi Morgan PA Routine general medical examination at a health care facility (Primary Dx); Type 2 diabetes mellitus without complication, without long-term current use of insulin (CMS/HCC V24, CMS/HCC V28); Primary hypertension; Atrial fibrillation, unspecified type (CMS/HCC V24, CMS/HCC V28); Pure hypercholesterolemia ; Hypothyroidism, unspecified type; Anxiety and depression from Last 3 Months Immunizations Name Administration Dates Next Due Influenza trivalent, with pr eservative (Fluzone; Afluria) 6mo and older 08/23/2024 Pfizer SARS-CoV-2 COVID-19, mRNA, LNP-S, preservative free 08/23/2024 [...] Sign Reading Time Taken Comments Blood Pressure 120/50 05/16/2025 3:48 PM EDT Pulse 68 04/05/2025 3:17 PM EDT Temperature 36.9 C (98.4 F) 04/05/2025 3:17 PM EDT Respiratory Rate - - Oxygen Saturation 98% 04/05/2025 3:17 PM EDT Inhaled Oxygen Concentration - - Weight 96.2 kg (212 lb) 05/16/2025 3:48 PM EDT Height 180.3 cm (5' 11 ) 05/16/2025 3:48 PM EDT Body Mass Index 29.57 05/16/2025 3:48 PM EDT Plan of Treatment Upcoming Encounters Date Type Department Care Team (Late st Contact Info) Description 06/29/2025 10:40 AM EDT Office Visit [facility] - [facility] [facility] [address] [place] [address] Kyle Schaeffer NP [address] [place] [address] [address] [place] [address] 06/30/2025 2:00 PM EDT Office Visit [facility] [place] [address] [place] [phone] Manuel Justin NP [address] [facility] [address] [place] [address] Health Maintenance Due Date Last Done Comments [...] Retina Eye Exam 02/17/2026 02/17/2025, 07/27/2024, 08/03/2020 Falls Risk Assessment 04/05/2026 04/05/2025, 023 Medicare [...] 06/30/2013 RSV Immunization Adult Patients Completed 09/10/2023 Depression Screening Completed 04/05/2025, 10/15/20 HIB Vaccines Aged Out No longer eligi [...] Procedure Name Priority Date/Time Associated Diagnosis Comments TRANSTHORACIC ECHOCARDIOGRAM (TTE) COMPLETE Routine 05/16/2025 3:49 PM EDT Longstanding persistent atrial fibrillation (CMS/HCC V24, CMS/HCC V28) SOB (shortness of breath) MICROALBUMIN CREATININE URINE RATIO Routine 04/07/2025 10:54 AM EDT Type 2 diabetes mellitus without complication, without long-term current use of insulin ([facility] V24, [facility] V28) Primary hypertension CBC WITH AUTO DIFFERENTIAL Routine 04/07/2025 10:18 AM EDT Type 2 diabetes mellitus without complication, without long-term current use of insulin ([facility] V24, [facility] V28) COMPREHENSIVE METABOLIC PANEL Routine 04/07/2025 10:18 AM EDT Type 2 diabetes mellitus without complication, without long-term current use of insulin ([facility] V24, [facility] V28) Primary hypertension HEMOGLOBIN A1C Routine 04/07/2025 10:18 AM EDT Type 2 diabetes mellitus without complication, without long-term current use of insulin ([facility] V24, [facility] V28) VITAMIN B12 Routine 04/07/2025 10:18 AM EDT Type 2 diabetes mellitus without complication, without long-term current use of insulin (CMS/[facility] V24, CMS/[facility] V28) MAGNESIUM Routine 04/07/2025 10:18 AM EDT Primary hypertension LIPID PANEL WITH REFLEX TO DIRECT LDL Routine 04/07/2025 10:18 AM EDT Pure hypercholesterolemia CBC AND DIFFERENTIAL Routine 04/07/2025 10:18 AM EDT Type 2 diabetes mellitus without complication, without long-term current use of insulin ([facility] V24, CMS/[facility] V28) EXTERNAL DIABETIC RETINA EYE EXAM 02/17/2025 DEPRESSION SCREENING Routine 10/15/2023 FALLS RISK ASSESSMENT Routine 10/15/2023 DIABETES FOOT EXAM Routine 11/07/2022 COLONOSCOPY Routine 08/16/2015 HEPATITIS C SCREENING Routine 08/26/2013 from Last 3 Months or Most Recently Relevant to Health Maintenance Results * (ABNORMAL) TRANSTHORACIC ECHOCARDIOGRAM (TTE) COMPLETE (05/16/2025 3:49 PM EDT) Left Atrium Minor [place] 9.2 cm CV PACS Left Atrium Major [place] 9.1 cm CV PACS LA Area Sys (A2C) 59 cm2 CV PACS LA Area Sys (A4C) 59 cm2 CV PACS LA Volume (BP) 305 mL CV PACS RA Area 32.9 cm2 CV PACS RA 2D Volume 118 mL CV PACS AV Regurgitation PHT 372 ms CV PACS AR Max Velocity 3.9 m/s CV PACS AV Peak Gradient 61 mmHg CV PACS Aortic Sinus Valsalva 3.1 cm CV PACS Ascending Aorta 3.3 cm CV PACS IVSD 1.3(A) 0.6 - 1.0 cm CV PACS LVIDD 4.7 4.2 - 5.8 cm CV PACS LVIDS 2.8 2.5 - 4.0 cm CV PACS LVOT Diameter 2.2 cm CV PACS LVOT Mean Grad 2 mmHg CV PACS LVOT Peak VTI 16.6 cm CV PACS LVOT Mean Froylan 0.6 m/s CV PACS LVOT Peak Froylan 0.8 m/s CV PACS LVOT Peak Gradient 3 mmHg CV PACS LVPWD 1.2(A) 0.6 - 1.0 cm CV PACS LVOT Area 3.8 cm2 CV PACS LVOT Stroke Volume 63 mL CV PACS PV Acceleration Time 124 ms CV PACS PV Acceleration Time 124 ms CV PACS RV Diastolic Basal Dimension 4.5(A) 2.5 - 4.1 cm CV PACS TAPSE 22 mm CV PACS TR Peak Velocity 2.69 m/s CV PACS TR Peak Gradient 29 mmHg CV PACS Relative Wall Thickness ratio 0.51 CV PACS FS 40 % CV PACS LV Mass 2D 225 g CV PACS LVOT flow 228 mL/s CV PACS BSA 2.19 m2 CV PACS LA Volume Index (BP) 141 mL/m2 CV PACS LVIDD Index 2.18 cm/m2 CV PACS LVIDS Index 1.30 cm/m2 CV PACS LV Mass Index 2D 104(A) 50 - 102 g/m2 CV PACS LVOT Stroke Index 29 mL/m2 CV PACS RA 2D Volume Index 55(A) 18 - 32 mL/m2 CV PACS Ascending Aorta Index 1.53 cm/m2 CV PACS Right Ventricular Peak Systolic Pressure 44 mmHg CV PACS Est. RA Pressure 15 mmHg CV PACS Anatomical Region Laterality Modality Ultrasound Narrative 05/23/2025 11:05 AM EDT Left ventricle cavity size is normal. There is mild hypertrophy. Systolic function is normal with an ejection fraction of 55-60%. There are no regional LV wall motion abnormalities Biatrial dilatation No hemodynamically significant valvular dysfunction Compared to the prior study from 2020, there has been no significant change Left Ventricle Left ventricle cavity size is normal. There is mild hypertrophy. Systolic function is normal with an ejection fraction of 55-60%. There are no regional LV wall motion abnormalities. Unable to assess diastolic function. Right Ventricle Right ventricle cavity is dilated. Systolic function is normal. Normal TAPSE (> 17 mm). Left Atrium Left atrium cavity is severely dilated. Right Atrium Right atrium cavity is severely dilated. IVC/SVC RA pressures is estimated to be 15 mmHg (IVC diameter >21 mm and decreases <50% during inspiration). Mitral Valve The leaflets are mildly thickened. The leaflets are tethered. There is mild annular calcification. There is trace regurgitation. There is no evidence of mitral valve stenosis. Tricuspid Valve The leaflets exhibit normal excursion. There is mild regurgitation. Aortic Valve The aortic valve is trileaflet. The leaflets are mildly thickened. There is trace regurgitation. There is no evidence of aortic valve stenosis. Pulmonic Valve The pulmonic valve was not well visualized. No significant pulmonic valve regurgitation. No significant pulmonary valve stenosis noted. Ascending Aorta The aorta appears normal in size. Study Details Overall the study quality was adequate. The underlying ECG rhythm was atrial fibrillation. us Michael Roger MD CV ECHO PROCEDURES Final Resul t * (ABNORMAL) Microalbumin creatinine urine ratio (04/07/2025 10:54 AM EDT) Creatinine, Urine 148.0 mg/dL LAB CHEMISTRY METHOD 04/07/2025 12:49 PM EDT [facility] Microalb, Ur 41.4(H) 0.0 - 29.0 mg/L LAB CHEMISTRY METHOD 04/07/2025 12:49 PM T [facility] Microalb/Crea t Ratio 28 <30 mg/g creat LAB CHEMISTRY METHOD 04/07/2025 12:49 PM T [facility] Urine Urine specimen obtained by clean catch procedure / Unknown Non-blood Collection / Unknown 04/07/2025 10:54 AM EDT 04/07/2025 10:54 AM EDT us Shruthi FREEDMAN LAB URINE ORDERABLES Fin al Result [facility] [address] [place] [address], [place] [phone] * (ABNORMAL) Lipid panel with reflex to direct LDL (04/07/2025 10:18 AM EDT) Cholesterol 110 0 - 200 mg/dL LAB CHEMISTRY METHOD 04/07/2025 1:[address] [facility] Triglycerides 119 0 - 150 mg/dL LAB CHEMISTRY METHOD 04/07/2025 1:[address] [facility] HDL 38(L) >=40 mg/dL LAB CHEMISTRY METHOD 04/07/2025 1:[address] [facility] LDL Calculated 48 0 - 100 mg/dL LAB CHEMISTRY METHOD 04/07/2025 1:[address] [facility] VLDL Cholesterol Brad 23.8 mg/dL LAB CHEMISTRY METHOD 04/07/2025 1:[address] [facility] Non HDL Chol. (LDL+VLDL) 72 <145 mg/dL LAB CHEMISTRY METHOD 04/07/2025 1:[address] [facility] Chol/HDL Ratio 2.9 0.0 - 4.4 LAB CHEMISTRY METHOD 04/07/2025 1:04 PM T [facility] Blood Venous blood specimen / Unknown Venipuncture / Unknown 04/07/2025 10:18 AM EDT 04/07/2025 10:18 AM EDT us Shruthi FREEDMAN LAB BLOOD ORDERABLES Fin al Result [facility] [address] [place] [address], * (ABNORMAL) CBC auto differential (04/07/2025 10:18 AM EDT) WBC 5.7 4.8 - 10.8 K/mcL LAB HEMETOLOGY METHOD 04/07/2025 11:[address] [facility] RBC 3.70(L) 4.50 - 5.50 M/mcL LAB HEMETOLOGY METHOD 04/07/2025 11:[address] [facility] Hemoglobin 12.3(L) 13.5 - 17.5 g/dL LAB HEMETOLOGY METHOD 04/07/2025 11:[address] [facility] Hematocrit 35.8(L) 42.0 - 54.0 % LAB HEMETOLOGY METHOD 04/07/2025 11:[address] [facility] MCV 97.5 79.0 - 98.0 FL LAB HEMETOLOGY METHOD 04/07/2025 11:[address] [facility] MCH 33.5(H) 27.0 - 32.0 pcg LAB HEMETOLOGY METHOD 04/07/2025 11:[address] [facility] MCHC 34.4 32.0 - 37.0 g/dL LAB HEMETOLOGY METHOD 04/07/2025 11:[address] [facility] RDW 13.2 11.0 - 15.0 % LAB HEMETOLOGY METHOD 04/07/2025 11:[address] [facility] Platelets 147 130 - 400 K/mcL LAB HEMETOLOGY METHOD 04/07/2025 11:[address] [facility] MPV 10.3 7.0 - 11.0 FL LAB HEMETOLOGY METHOD 04/07/2025 11:[address] [facility] NRBC 0.0 <1.0 % LAB HEMETOLOGY METHOD 04/07/2025 11:[address] [facility] NRBC Absolute 0.00 <0.10 K/mcL LAB HEMETOLOGY METHOD 04/07/2025 11:[address] [facility] Neutrophils Relative 60.7 % LAB HEMETOLOGY METHOD 04/07/2025 11:[address] [facility] Lymphocytes Relative 29.4 % LAB HEMETOLOGY METHOD 04/07/2025 11:[address] [facility] Monocytes Relative 7.9 % LAB HEMETOLOGY METHOD 04/07/2025 11:[address] [facility] Eosinophils Relative 1.6 % LAB HEMETOLOGY METHOD 04/07/2025 11:[address] [facility] Basophils Relative 0.2 % LAB HEMETOLOGY METHOD 04/07/2025 11:[address] [facility] Immature Granulocytes Relative 0.2 % LAB HEMETOLOGY METHOD 04/07/2025 11:[address] [facility] Neutrophils Absolute 3.45 1.50 - 7.00 K/mcL LAB HEMETOLOGY METHOD 04/07/2025 11:[address] [facility] Lymphocytes Absolute 1.67 1.00 - 5.00 K/mcL LAB HEMETOLOGY METHOD 04/07/2025 11:[address] [facility] Monocytes Absolute 0.45 0.20 - 1.00 K/mcL LAB HEMETOLOGY METHOD 04/07/2025 11:51 AM EDT [facility] Eosinophils Absolute 0.09 0.00 - 0.50 K/[facility] LAB HEMETOLOGY METHOD 04/07/2025 11:51 AM EDT [facility] Basophils Absolute 0.01 0.00 - 0.20 K/[facility] HEMETOLOGY METHOD 04/07/2025 11:51 AM EDT [facility] Immature Granulocytes Absolute 0.01 0.00 - 0.03 K/[facility] HEMETOLOGY METHOD 04/07/2025 11:51 AM EDT [facility] Blood Venous blood specimen / Unknown Venipuncture / Unknown 04/07/2025 10:18 AM EDT 04/07/2025 10:18 AM EDT us Shruthi FREEDMAN LAB BLOOD ORDERABLES Fin al Result Performing Organization Address City/[facility]/ZIP Co de Phone Number [facility] [address] [place] [address], * (ABNORMAL) Magnesium (04/07/2025 10:18 AM EDT) Magnesium 1.7(L) 1.9 - 2.6 mg/dL LAB CHEMISTRY METHOD 04/07/2025 12:19 PM EDT [facility] Blood Venous blood specimen / Unknown Venipuncture / Unknown 04/07/2025 10:18 AM EDT 04/07/2025 10:18 AM EDT us Shruthi FREEDMAN LAB BLOOD ORDERABLES Fin al Result [facility] [address] [place] [address], [place] [phone] * Hemoglobin A1c (04/07/2025 10:18 AM EDT) [facility] Hemoglobin A1C 6.0 <6.5 % LAB CHEMISTRY METHOD 04/07/2025 1:55 PM EDT [facility] Mean Bld Glu Estim. 126 mg/dL LAB CHEMISTRY METHOD 04/07/2025 1:55 PM EDT [facility] Blood Venous blood specimen / Unknown Venipuncture / Unknown 04/07/2025 10:18 AM EDT 04/07/2025 10:18 AM EDT Shruthi FREEDMAN LAB BLOOD ORDERABLES Fin al Result [facility] [address] [place] [address], [place] [phone] * Vitamin B12 (04/07/2025 10:18 AM EDT) [facility] Vitamin B-12 412 250 - 900 pcg/mL LAB CHEMISTRY METHOD 04/07/2025 1:04 PM EDT [facility] Blood Venous blood specimen / Unknown Venipuncture / Unknown 04/07/2025 10:18 AM EDT 04/07/2025 10:18 AM EDT Shruthi FREEDMAN LAB BLOOD ORDERABLES Fin al Result [facility] [address] [place] [address], [place] [phone] * (ABNORMAL) Comprehensive metabolic panel (04/07/2025 10:18 AM EDT) [facility] Sodium 137 133 - 145 mmol/L LAB CHEMISTRY METHOD 04/07/2025 1:04 PM EDT [facility] Potassium 4.0 3.5 - 5.5 mmol/L LAB CHEMISTRY METHOD 04/07/2025 1:04 PM EDT [facility] Chloride 100 96 - 110 mmol/L LAB CHEMISTRY METHOD 04/07/2025 1:[address] [facility] CO2 31 21 - 32 mmol/L LAB CHEMISTRY METHOD 04/07/2025 1:[address] [facility] Anion Gap 6 3 - 11 LAB CHEMISTRY METHOD 04/07/2025 1:[address] [facility] Glucose 121(H) 70 - 100 mg/dL LAB CHEMISTRY METHOD 04/07/2025 1:[address] [facility] BUN 9 5 - 25 mg/dL LAB CHEMISTRY METHOD 04/07/2025 1:[address] [facility] Creatinine 0.88 0.70 - 1.30 mg/dL LAB CHEMISTRY METHOD 04/07/2025 1:[address] [facility] eGFR 91 >=60 mL/min/1. 73m2 LAB CHEMISTRY METHOD 04/07/2025 1:[address] [facility] Comment:Calculation based on the Chronic Kidney Disease Epidemiology Collaboration (CKD-EPI) equation refit without adjustment for race. BUN/Creatinine Ratio 10.2 LAB CHEMISTRY METHOD 04/07/2025 1:[address] [facility] Calcium 8.8 8.5 - 10.5 mg/dL LAB CHEMISTRY METHOD 04/07/2025 1:04 [facility] AST (SGOT) 22 10 - 42 unit/L LAB CHEMISTRY METHOD 04/07/2025 1:04 [facility] ALT (SGPT) 29 10 - 60 unit/L LAB CHEMISTRY METHOD 04/07/2025 1:[address] [facility] Alkaline Phosphatase 102 42 - 121 unit/L LAB CHEMISTRY METHOD 04/07/2025 1:[address] [facility] Total Protein 6.4 6.0 - 8.0 g/dL LAB CHEMISTRY METHOD 04/07/2025 1:[address] [facility] Albumin 3.7 3.2 - 5.0 g/dL LAB CHEMISTRY METHOD 04/07/2025 1:04 PM EDT [facility] Total Bilirubin 0.6 0.0 - 1.4 mg/dL LAB CHEMISTRY METHOD 04/07/2025 1:04 PM EDT [facility] Blood Venous blood specimen / Unknown Venipuncture / Unknown 04/07/2025 10:18 AM EDT 04/07/2025 10:18 AM EDT Shruthi FREEDMAN LAB BLOOD ORDERABLES Fin al Result [facility] [address] [place] [address], [place] [phone] * External Diabetic Retina Eye Exam Report (02/17/2025) Anatomical Region Laterality Modality Ultrasound Provider [facility] US PROCEDURES Final Result * Falls Risk Assessment (10/15/2023) [facility] Falls Risk Assessment Abstracted Historical Provider HEALTH MAINTENANCE Final Result * Depression Screening (10/15/2023) Pathologist [facility] Depression Screening 1 yr fu Historical Provider HEALTH MAINTENANCE Final Result * Diabetes Foot Exam (11/07/2022) [facility] Diabetes: Annual Foot Exam 1 yr fu Historical Provider HEALTH MAINTENANCE Final Result * Colonoscopy (08/16/2015) Pathologist [facility] Colonoscopy 10 yr fu Anatomical Region Laterality Modality Other Historical Provider HEALTH MAINTENANCE Final Result * Hepatitis C Screening (08/26/2013) Pathologist [facility] Hepatitis C Screening neg Historical Provider HEALTH MAINTENANCE Final Result from Last 3 Months or Most Recently Relevant to Health Maintenance Insurance [employer]ARE [employer] Care Teams Online Content Editor Relationship Specialty Start Date End Date Fredrick Corral MD [address] [facility] [place] [address] PCP - General 04/08/24
== END 2025-06-08 15:07 | disposition home or self-care (01) ==
LOC: HO.HSM 14:54
PROVIDERS: PCP Internal Medicine; Visit Provider Psychiatry & Neurology Neurology
DX: G11.9 Hereditary ataxia, unspecified (principal)
CPT/HCPCS: 99214

== ENCOUNTER → 2025-06-08 14:54 | Outpatient (BNVA) | payer MEDICARE, BC, SELFPAY | PROVIDERS: PCP Internal Medicine; Visit Provider Psychiatry & Neurology Neurology | DX: G11.9 Hereditary ataxia, unspecified (principal); Z79.01 Long term (current) use of anticoagulants; Z91.81 History of falling | CPT/HCPCS: 99212 ==

== ENCOUNTER 2025-10-04 14:44 | Outpatient (AMB) | payer MEDICARE, BC, SELFPAY ==
--- NOTE | 2025-10-04 14:46 | A.OFFVIS_ITS ---
Intake Visit Reasons: 4 months VR Allergies lisinopril Allergy (Verified 10/04/25 14:51) Cough Medication List - Last Reconciled 10/04/25 by Gail Washington CNP apixaban (Eliquis) 5 mg PO BID atenolol 100 mg PO DAILY atorvastatin 80 mg PO DAILY benzonatate 100 mg PO TID PRN coffee xt-phosphatidyl serine 100-100 mg caps PO DAILY docosahexaenoic acid mg PO furosemide 40 mg PO DAILY levothyroxine (Synthroid) 100 mcg PO DAILY loratadine 10 mg PO DAILY losartan 25 mg PO DAILY metformin ER 500 mg PO DAILY sjgetcywibpt-jfynzjuc-naudfk 1 tab PO DAILY oxybutynin chloride ER 5 mg PO DAILY sertraline 100 mg PO DAILY tadalafil 5 mg PO DAILY trazodone 50 mg PO BEDTIME HPI Comments Details: 70-year-old man with a history of atrial fibrillation on anticoagulation, hypertension, type 2 diabetes, depression, and long history of alcohol use disorder (drinking 8-10 drinks a day for most of his life) who presented in 04/2025 for multiple falls, mostly down the stairs, over the last 10 years. Around 2023, he noted increased problems with his balance on level ground if it is uneven. No history of stroke. No family history of ataxia. He was doing okay. He stopped drinking alcohol after his last appointment in 05/2025. He feels he is walker better. No falls. He occasionally had some numbness and tingling in feet. He was not taking B complex regularly. [facility] Medical History (Updated 06/08/25 @ 15:03 by Augusto Owens MD) Pure hypercholesterolemia Essential (primary) hypertension Mitral valve disorder Chest pain Atrial fibrillation Hypothyroid Rosacea Retina disorder Erectile dysfunction Diabetes mellitus with renal complications Diabetes mellitus with peripheral vascular disease BPH (benign prostatic hyperplasia) Diverticulosis Obesity (BMI 30.0-34.9) Enlarged prostate OTILIO (obstructive sleep apnea) Proteinuria Type 2 diabetes mellitus with obesity Moderate major depression Alcohol dependence in remission SOB (shortness of breath) CHF (congestive heart failure) Abnormal EKG Insomnia Surgical History (Updated 04/25/25 @ 17:47 by Santa Dougherty MA) Hx of tonsillectomy H/O knee surgery H/O colonoscopy Hx of cataract extraction Family History (Updated 04/25/25 @ 17:50 by Santa Dougherty MA) Mother Coronary artery disease Father Atrial fibrillation Daughter Asthma Brother Hypertension Brother Prostate cancer Social History (Updated 04/25/25 @ 17:48 by Santa Dougherty MA) Alcohol intake: current Patient Tobacco Use Status: Never used Tobacco Review of Systems Const Denies chills, Denies daytime sleepiness, Denies difficulty sleeping, Denies fatigue, Denies fever(s), Denies frequent falls, Denies headache(s), Denies increased appetite, Denies poor appetite, Denies snoring, Denies weakness, Denies weight gain and Denies weight loss Eyes Denies loss of vision ENT Denies vertigo, Denies dizziness, Denies headache(s) and Denies neck pain Card Denies chest pain at rest, Denies chest pain with activity, Denies syncope, Denies leg edema, Denies palpitations, Denies dyspnea and Denies dyspnea on exertion Resp Denies cough, Denies dyspnea, Denies dyspnea on exertion and Denies snoring GI Denies abdominal pain, Denies constipation, Denies heartburn, Denies diarrhea and Denies nausea Denies urinary frequency, Denies urinary incontinence and Denies urinary urgency Musc Reports abnormal gait (balance difficulty), Denies back pain, Denies myalgias, D enies arthralgias, Denies neck pain, Denies numbness and Denies tingling Neuro Reports abnormal gait (balance difficulty), Denies vertigo, Denies dizziness, Denies syncope, Denies frequent falls, Denies headache(s), Denies lack of coordination, Denies loss of vision, Denies memory loss, Denies numbness, Denies Other visual disturbances, Denies restless legs, Denies seizure-like activity, Denies tingling, Denies paresthesias, Denies tremor(s) and Denies weakness Psych Denies anxiety, Denies depression, Denies auditory hallucinations, Denies memory loss and Denies visual hallucinations Endo Denies fatigue and Denies palpitations Physical Exam Const Other: General Appearance:? normal, in no acute distress. Heart:? S1, S2 normal, no murmurs. Lungs:? clear anteriorly and posteriorly. Musculoskeletal:? normal. Extremities:? no edema. Psych:? alert, oriented, cognitive function intact, cooperative with exam. Neuro Other: Abnormal Neurological Findings:?Truncal ataxia on tandem walking. Mental Status: alert and oriented X 3. Normal attention, orientation, memory, and affect. Cranial Nerves: Pupils are equal, round, and reactive to light. External ocular muscles are intact. Visual carson are full, no ptosis. Face is symmetrical, no facial weakness or droop. Facial sensations are normal. Tongue protrudes in midline. Palate elevates symmetrically. Shoulder shrugging is normal Motor Examination: Normal muscle tone, bulk and strength. No atrophy or fasciculations. No drift of the extended upper extremities. DTR 2+. Plantars are flexor. Sensory Exam: Normal light touch, temperature, pinprick, vibration, and joint- position sensations. Rhomberg sign is absent. Coordination: Truncal ataxia on tandem walking. Gait Exam: Broad based gait with tandem ataxia. Cerebellar Signs: [id number] is okay. Extrapyramidal System: No tremor, rigidity with normal facial expressions. No bradykinesia. No bradyphrenia. Normal arm swing and posture. No propulsion or retropulsion. Speech: Normal. Results Reviewed Results Reviewed: 05/16/25 MRI Brain: Scattered T2/FLAIR hyperintensities throughout the subcortical and periventricular white matter, likely in keeping with chronic small vessel ischemic disease. Parenchymal volume loss with compensatory prominence of the ventricles and CSF spaces. Prominent cerebellar folia with vermian atrophy. 05/16/25 MRI C spine with no cord compression. Mild degenerative spondylosis. 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 Continue B complex B-100 daily. Stay physically active. Follow up in 6 months or sooner as needed. 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
--- OUTSIDE RECORDS SUMMARY | 2025-10-04 20:45 | XMS_ITS | Data Portability ---
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 Name Role Phone FRANCISCO HANSON Primary Care Provider FLY DIXON Primary Care Provider Assessment Encounter Date Assessment Date Assessment LastModified by Organization Details LastModified Time 03/17/2024 03/17/2024 Patient Office Rep & Model: REAL 1 miniRITE Color: Silver myrick Ear couplin 85 10mm open domes RIGHT ear Serial Numbers Right: [id number] Left: PERFORMED THIS VISIT Hearing Aid Fitting Details Date: Patient Office Rep & Model: REAL 1 miniRITE Color: Silver myrick Ear couplin 85 10mm open domes RIGHT ear Serial Numbers Right: [id number] Left: Warranty Expiration: 03/17/2027 Accessories: Programs: Warranty Expiration: 03/17/2027 Accessories: Programs: [email or web address] Not available 03/17/2024 11:40:53 09/02/2024 09/02/2024 69-year-old male presents for evaluation of throat clearing. FOL today was benign without obvious mass or lesion. Differential diagnosis including GERD vs allergic rhinitis vs sinusitis vs habitual vs less likely laryngeal malignancy. Recommended trial of Omeprazole once daily x 2-3 months. We discussed potential interaction between synthroid and omeprazole and he will follow up with his PCP to monitor thryoid function. Also recommended allergy testing. Patient is on a beta antonia and will need to be cleared to hold atenolol for allergy testing. If he is unable to hold atenolol, may consider RAST. As there is no sinus history, will hold off on CT sinus at this time. He will follow up in 2-3 months for reevaluation and to review allergy testing. If no improvement, may consider CT neck with contrast. [email or web address] Not available 09/02/2024 13:37:27 11/17/2024 11/17/2024 Hearing aid check. No wax in ear canals. Cleaned and and Ultravacced. Patient admits he is not wearing the aid consistently for no real reason. 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 Then, if he does go out, he forgets the hearing aid. I again encouraged more consistent use. Also suggested keeping the aid in the bedroom to see if it helps him to remember to put it on Kathie liu Not available 11/17/2024 16:27:45 12/03/2024 12/03/2024 69-year-old male presents for follow-up of throat clearing. Previously FOL was benign. Allergy testing demonstrated mild and moderate reactions to molds, cat, dog, [place] grass, and Guamanian plantain weed. As symptoms have resolved no further intervention for GERD recommended at this time. If symptoms persist, consider referral to GI. Patient with allergic rhinitis. Allergy symptoms are well controlled on Claritin. We discussed that beta antonia would have to be discontinued if immunotherapy is considered. He is not interested in immunotherapy. He may follow up as needed. [email or web address] Not available 12/03/2024 13:00:58 Plan of Treatment Reminders Order Date Submit Date Provider Last Modified By Organization Details Last Modified Time Details Appointments None recorded. Lab None recorded. Referral None recorded. Procedures allergy testing, skin prick (PROC) 2023 024 [email or web address] Not available 5 15:30:03 intradermal allergy skin testing (PROC) 2023 024 [email or web address] Not available 5 15:30:09 pulmonary function test procedure (PROC) 2023 024 [email or web address] Not available 5 15:30:14 pulse oximetry (PROC) 2023 024 [email or web address] Not available 15:30:19 Surgeries None recorded. Imaging None recorded. Medication Orders omeprazole 20 mg capsule,del ayed release [id number] [address] [place], [address], 13:33:08 Patient TargetsNo targets recorded. Patient Instructions Encounter Date Encounter Id Patient Instructions Last Modified By Organization Details Last Modified Time 11/11/2024 [id number] Nursing Documentation for Allergy Testing: Ordering Provider Dr. Contreras Weight:lbs: kg: PFT Yes With Bronchodilator no approval needed to proceed with allergy testing? No ok'd testing History of Asthma:No Asthma Meds: Last used: Asthma exacerbated by: Chance that : N/A Fear of needles: No Regular medications reviewed in Computer: Yes Medication allergies: Reviewed Antihistamine use: No Medications used: Food Allergies: n/a Any foods make your mouth feeling itchy: No If yes: History of severe reaction where had to go to ER? No If yes details: Type of heat in home: Forced Air Pets: No If yes: Smoker: Never If former smoker-how much / day for how long When quit years ago Smoking now-how much /day for how long Occupation/Social History: retired , stays at home Symptoms having: Runny Nose If other: itchy eyes Frequency Seasonally Spirometry Contraindications: Heart attack in the last 3 months: No Major surgery in last 3 months: No Detached retina(serious eye issues) in last 2 months: No Hospitilization in last month: No Proceed with PFT Yes approval needed: No Nursing Notes: Pt tolerated test well Yes Benadryl cream to test sites No Patient became syncopal-placed in supine position No Large reactions to MQT, reschedule IDT for a different date No Other: Written by: Christa Davis Not available 11/11/2024 15:15:32 Reason for Referral None Reported. Results Created Date Observation Date Name Description Value Unit Range Abnormal Flag Note LastModifiedBy Organization Detail LastModifiedTime 06/15/20 24 01/13/2020 imagi ng/di john tic resul t No observ ation record ed. [email or web address] Not Available 20:14:50 06/15/20 24 01/21/2020 imagi ng/di agnos tic resul t No observ ation record ed. [email or web address] Not Available 20:14:51 06/15/20 24 07/29/2019 audio gram No observ ation record ed. [email or web address] Not Available 20:14:58 06/15/2008/16/2019 imagi ng/di agnos tic resul t No observ ation record ed. [email or web address] Not Available 20:15:07 06/15/2009/01/2019 imagi ng/di agnos tic resul t No observ ation record ed. [email or web address] Not Available 20:15:13 06/15/20 24 09/13/2020 imagi ng/di agnos tic resul t No observ ation record ed. [email or web address] Not Available 20:15:26 06/15/20 24 09/25/2023 imagi ng/di agnos tic resul t No observ ation record ed. [email or web address] Not Available 20:15:33 06/15/20 24 09/26/2023 imagi ng/di agnos tic resul t No observ ation record ed. [email or web address] Not Available 20:15:38 06/15/20 24 09/30/2019 imagi ng/di agnos tic resul t No observ ation record ed. [email or web address] Not Available 20:15:45 06/15/20 24 11/19/2023 audio gram No observ ation record ed. [email or web address] Not Available 20:15:53 06/15/20 24 02/23/2024 audio gram No observ ation record ed. [email or web address] Not Available 20:16:15 06/15/20 24 07/29/2019 audio gram No observ ation record ed. [email or web address] Not Available 20:16:22 06/15/20 24 09/26/2023 audio gram No observ ation record ed. [email or web address] Not Available 20:16:33 06/15/20 24 10/22/2023 audio gram No observ ation record ed. [email or web address] Not Available 20:16:37 11/11/19 25 alejandra metry testi ng* No observ ation record ed. Not Available 2024 17:15:42 Result Notes None recorded. Problems Name Problem SNOMED Code Status Onset Date Resolution Date Notes Provider Name and Address Organization Details Recorded Time Sensorine ural hearing loss 21813583 Active 2016 Sensorine ural hearing loss, unilatera l, right ear, with unrestric angelo hearing on the contralat eral side; Note: Date Diagnosed : 04/22/2017 1:59 PM (H90.41) Not Available [facility] 4 03:11:15 Deviated nasal septum 716266736 Active 2016 Deviated nasal septum; Note: Date Diagnosed : 05/22/2017 10:39 AM (J34.2) Not Available [facility] 4 03:11:15 Snoring 92847341 Active 2016 Snoring; Note: Date Diagnosed : 05/22/2017 10:38 AM (R06.83) Not Available [facility] 4 03:11:15 Obstructi ve sleep apnea syndrome 05571834 Active 2016 Obstructi ve sleep apnea (adult) (pediatri c); Note: Date Diagnosed : 07/22/2017 1:20 PM (G47.33) Not Available [facility] 4 03:11:14 Tinnitus of right ear 85968656283 08 Active 2018 Tinnitus, right ear; Note: Date Diagnosed : 07/29/2019 3:22 PM (H93.11) Not Available [facility] 4 03:11:16 Sensorine ural hearing loss of bilateral ears 832304326 Active 2018 Sensorine ural hearing loss, bilateral ; Note: Date Diagnosed : 07/29/2019 3:23 PM (H90.3) Sensori neural hearing loss, bilateral ; Note: Date Diagnosed : 04/22/2017 2:00 PM (H90.3) ; Start Date : 7 Not Available [facility] 4 03:11:16 Sensorine ural hearing loss in right ear 62876342406 100 Active 2023 KATHIE CALVILLO MA, CCC-A [address],[place] [address], [place], [address] , [facility] - [facility] 4 15:46:30 Feeling of lump in throat 191480043 Active 2023 ADRIAN BUNCH PA-C [address] [facility] [address],[place] [address], [place], [address] , [facility] - [facility] 4 13:31:41 Throat irritatio n 920848516 Active 2023 ADRIAN BUNCH PA-C [address] [facility] [address],[place] [address], [place], [address] , [facility] - [facility] 4 13:31:58 Allergic rhinitis 88085785 Active 2024 SERINA PRINCE [address] [facility] [address],[place] [address], [place], [address] , [facility] - [facility] 5 14:25:29 Perennial allergic rhinitis 842568148 Active 2024 SERINA PRINCE [address] [facility] [address] [address], [place], [address] , [facility] - [facility] 5 14:37:46 Problem Notes None recorded. Procedures Surgical History Date Name Laterality Status Provider Name and Address Organization Details Recorded Time 5 Allergy Testing-Full completed SERINA PRINCE [address] [facility] [address],[place] [address], [place], [address], [facility] - [facility] 11/11/2024 15:36:02 4 FOL_DP completed ADRIAN BUNCH PA-C [address],[place] [address], [place], [address], [facility] - [facility] 09/02/2024 13:31:24 Imaging Results None recorded. Procedure Notes None recorded. Medical Equipment None Reported. Allergies Allergen ID Allergen Name Allergen Category Reaction Reaction Severity Criticality Documentation Date Start Date Code Code System Note Provider Name and Address Organization Details Recorded Time [id number] lisinopri l medicatio n other Not available Not available 03/09/2024 01671 RxNorm React ion: unkno wn, unspe cifie d;; Not Available [facility] 01:23:56 Medications Name Sig Start Date Stop Date Status Note LastModified by Organization Details LastModified Time amoxicill in 500 mg capsule PLEASE SEE ATTACHED FOR DETAILED DIRECTIO NS 09/02 completed Not Available Not Available Not Available furosemid e 40 mg tablet active Not Available Not Available Not Available atorvasta tin 80 mg tablet active Not Available Not Available Not Available trazodone 50 mg tablet TAKE 1/2 TO 1 TABLET BY MOUTH AT BEDTIME NEEDED FOR SLEEP active Not Available Not Available No t Available Lidocaine Viscous 2 % mucosal solution TAKE 5 ML BY MOUTH NEEDED (PAIN). SWISH AND SPIT NEEDED FOR PAIN 11/11 completed Not Available Not Available Not Available atenolol 100 mg tablet TAKE 1 TABLET BY MOUTH EVERY DAY active Not Available Not Available No t Available Synthroid 100 mcg tablet TAKE 1 TABLET BY MOUTH EVERY DAY active Not Available Not Available No t Available sertralin e 100 mg tablet TAKE 1 TABLET DAILY active Not Available Not Available No t Available penicilli n V potassium 500 mg tablet TAKE 1 TABLET BY MOUTH THREE TIMES A DAY FOR 10 DAYS 11/11 completed Not Available Not Available Not Available terbinafi ne HCl 250 mg tablet TAKE 1 TABLET BY MOUTH EVERY DAY active Not Available Not Available No t Available potassium chloride 20 mEq oral packet MIX 1 PACKET DIRECTED AND DRINK ONCE DAILY FOR 2 DAYS 11/11 completed Not Available Not Available Not Available benzonata te 100 mg capsule TAKE 1 CAPSULE BY MOUTH 3 TIMES DAILY NEEDED FOR COUGH FOR UP TO 7 DAYS. 09/02 completed Not Available Not Available Not Available levothyro xine 50 mcg tablet 2016 active Medicati on ID: [id number] D uration Value: 30 Brand Name: levothyr oxine Se nd Method: E-Prescr ibed Sub s Allowed: subs OK Speci al Instruct ion: TAKE 1 TABLET BY MOUTH DAILY Me dication GenericN ines: levothyr oxine Not Available Not Available Not Available metformin 1,000 mg tablet TAKE 1 TABLET BY MOUTH EVERY DAY WITH BREAKFAS T 11/11 completed Not Available Not Available Not Available ranitidin e 150 mg tablet 11/11 completed Medicati on ID: [id number] D uration Value: 90 Brand Name: ranitidi ne HCl Send Method: E-Prescr ibed Sub s Allowed: subs OK Speci al Instruct ion: TAKE 1 TABLET BY MOUTH 2 TIMES DAILY. M roman nGeneric Name: ranitidi ne HCl Not Available Not Available Not Available clotrimaz ole-betam ethasone 1 %-0.05 % topical cream APPLY TO AFFECTED AREA TWICE A DAY 09/02 completed Not Available Not Available Not Available losartan 25 mg tablet TAKE 1 TABLET DAILY active Not Available Not Available No t Available omeprazol e 20 mg capsule,d elayed release TAKE 1 CAPSULE BY MOUTH EVERY DAY 2023 active Not Available Not Available Not Avai lable ibuprofen 600 mg tablet TAKE 1 TABLET BY MOUTH 1 HOUR PRIOR TO DENTAL APPOINTM ENT AND 1 TABLET EVERY 6 HOURS FOR PAIN. active Not Available Not Available No t Available fluticaso ne propionat e 50 mcg/actua tion nasal spray,giuseppe pension USE 2 SPRAYS IN EACH NOSTRIL EVERY DAY active Not Available Not Available No t Available metformin ER 500 mg tablet,ex tended release 24 hr TAKE 1 TABLET BY MOUTH EVERY DAY WITH BREAKFAS T active Not Available Not Available No t Available clotrimaz ole 1 % topical cream APPLY TO AFFECTED AREAS TWICE DAILY UNTIL RESOLVED . 09/02 completed Not Available Not Available Not Available tadalafil 5 mg tablet TAKE 1 TABLET BY MOUTH EVERY DAY*NOT CVD* active Not Available Not Available No t Available chlorhexi dine gluconate 0.12 % mouthwash RINSE MOUTH WITH 15ML (1 CAPFUL) FOR 30 SECONDS IN MORNING AND EVENING AFTER BRUSHING , THEN SPIT 09/02 completed Not Available Not Available Not Available doxycycli ne monohydra te 40 mg capsule,i mmediate - delay release TAKE 1 CAPSULE BY MOUTH EVERY DAY IN THE MORNING active Not Available Not Available No t Available Pradaxa 150 mg capsule 11/11 completed Medicati on ID: [id number] D uration Value: 90 Brand Name: Pradaxa Send Method: E-Prescr ibed Sub s Allowed: subs OK Medic ationGen ericName : Pradaxa Not Available Not Available Not Available Eliquis 5 mg tablet TAKE 1 TABLET TWICE A DAY (REPLACE S PRADAXA) active Not Available Not Available No t Available Vitals Date Recorded Body height Body mass index (BMI) Body weight Oxygen saturation Heart rate Systolic And Diastolic Provider Name and Address Organization Details Last Updated DateTime 180.34 cm 29 kg/m2 15852.2 1 g 96 % 90 /min 119/73 mm[Hg] CHRISTA DAVIS Velasquez [address] [place] [address], [place], [address] [place] [address] [facility] 14:32:41 Date Recorded Body height Body mass index (BMI) Body weight Provider Name and Address Organization Details Last Updated DateTime 12/03/2024 180.34 cm 29 kg/m2 25268.21 g Esha Melton [facility] 12/03/2024 10:59:23 Social History None recorded. Functional Status None recorded. Mental Status None recorded. Family History Nothing Reported. Medical History No medical history recorded. Past Encounters Encounter ID Performer Location Encounter Start Date Encounter Closed Date Diagnosis/Indication Diagnosis SNOMED-CT Code Diagnosis ICD10 Code Diagnosis IMO Codes Diagnosis Note [id number] KATHIE CALVILLO MA, CCC-A [facility] 100 [facility] 100 [place] [address] 03/17/2024 14:52:20 04/16/2024 11:59:01 Sensorineural hearing loss in right ear 5725010155 9100 H90.A21 Patient is VERY happy with his new aid; says it's much better than his old aid. He has worn it about 10 hours per day. Rarely needs to use the volume control.We did review changing the wax guard and dome which he did without difficulty .Suggested that he return in about 6 months to [facility]; sooner if difficulti es arise. [id number] ADRIAN BUNCH PA-C [facility] 100 [place] [address] 09/02/2024 13:00:04 09/02/2024 13:25:23 Throat irritation 412858257 R07.0 [id number] CHRISTA DAVIS, RMA Allergy 100 [facility],[place] 100 [place] [address] 11/11/2024 14:13:29 11/11/2024 15:49:45 Allergic rhinitis 09706976 J30.9 [id number] KATHIE CALVILLO MA, CCC-A [facility] [place] 100 [facility] 100 [place] [address] 11/17/2024 13:47:00 11/18/2024 07:23:54 Sensorineural hearing loss 34752701 H90.41 [id number] ADRIAN BUNCH PA-C [facility] 100 [place] [address] 12/03/2024 10:56:15 12/03/2024 11:33:22 Throat irritation 395305528 R07.0 Allergic rhinitis 289415 04 J30.89 Health Concerns Section Related Observation LastModified by Organization Detai ls LastModified Time None Recorded Concern Status LastModified by Organization Details LastModified Time None Recorded Advance Directives Directive None Recorded Payers Insurance Date Sequence Insurance Name Policy Number Policy Garland Covered Member ID Garland Member ID Guarantor Name 12/01/2024 1 [place]ICARE [place] [facility] Claude Franklin [id number] Claude Franklin 12/01/2024 2 [place] [id number] Claude Franklin [id number] Claude Franklin Notes Date Note Type Note Provider Name and Address Organization Details Recorded Time 09/02/2024 text/html ROS as noted in the HPI 69-year-old male presents for evaluation of throat clearing. For the past few months, he has been constantly clearing his throat, worse at night. He was treated for cough with antibiotics a few weeks ago with improvement in symptoms. He continues to clear his throat, but denies headaches, postnasal drip, choking on solids or liquids, otalgia, voice changes, or sore throat. Denies history of tobacco use. Occasionally has episodes of acid reflux. History of seasonal allergies, but no formal testing. Also used a nasal spray a few weeks ago but is unsure the name of it. VONDA CONTRERAS MD 100 [facility],[address], [address], [place] - [facility] 09/03/2024 13:29:34 12/03/2024 text/html ROS as noted in the HPI 69-year-old male presents for evaluation of throat clearing. Previously FOL was benign. He completed 3-month course of omeprazole. Also underwent allergy testing. Takes Claritin once daily. He reports throat clearing is significantly improved and he has not had any symptoms for the past 2 months. Denies dysphagia, otalgia, voice changes, sore throat, postnasal drip, and headaches. Denies history of tobacco use. History of seasonal allergic rhinitis. BERONICA RODAS MD 100 [facility],[place] [address], [place], [address], [facility] - [facility] 12/06/2024 09:19:32
--- OUTSIDE RECORDS SUMMARY | 2025-10-04 20:45 | XMS_ITS | Clinical Summary ---
Author Organization [facility] [address] Address [address] [facility] [place] [address] Phone Care Team Providers Care Contact Manager Name Role Phone Fredrick Corral MD Primary Care Provider [phone] Allergies Active Allergy Reactions Criticality Noted Date Comments Lisinopril Cough,Other Low 05/22/2016 cough Medications coffee xt/phosphatidyl serine (NEURIVA ORIGINAL ORAL) Take 1 capsule by mouth 1 (one) time each day. Active benzonatate (TESSALON) 100 mg capsule Take 1 capsule (100 mg total) by mouth. 06/25/20 24 Active loratadine (CLARITIN) 10 mg tablet Take 1 tablet (10 mg total) by mouth. Active tadalafiL (CIALIS) 5 mg tablet Take 1 tablet (5 mg total) by mouth 1 (one) time each day. 90 each 1 10/29/19 25 Active docosahexaenoic acid/epa (FISH OIL ORAL) Take by mouth. Active multivit-min/fol ic acid/lutein (CENTRUM SILVER ORAL) Take by mouth. Active apixaban (Eliquis) 5 mg tabletIndication s:Atrial fibrillation, unspecified type (CMS/HCC V24, CMS/HCC V28) Take 1 tablet (5 mg total) by mouth 2 (two) times a day. 180 each 3 02/29/20 25 Active magnesium aspart,citrate,o xide 400 mg magnesium capsuleIndicatio ns:Hypomagnesemi a Take 1 capsule by mouth at bedtime. 90 capsule 1 04/08/20 25 Active atorvastatin (LIPITOR) 80 mg tablet [...] MORNING. 90 capsule 1 05/21/20 25 Active traZODone (DESYREL) 50 mg tabletIndication s:Major depressive disorder, recurrent, moderate (CMS/HCC V24, CMS/HCC V28) TAKE 1 TABLET BY MOUTH EVERYDAY AT BEDTIME 90 tablet 1 06/25/20 25 Active atenoloL (TENORMIN) 100 mg tabletIndication s:Essential (primary) hypertension TAKE 1 TABLET BY MOUTH 1 TIME EACH DAY. 90 tablet 1 06/25/20 25 Active Synthroid 100 mcg tablet TAKE 1 TABLET BY MOUTH 1 TIME EACH DAY. 90 tablet 1 06/25/20 25 Active furosemide (LASIX) 40 mg tablet TAKE 1 TABLET BY MOUTH EVERY DAY 90 tablet 07/12/20 25 Active metroNIDAZOLE (METROGEL) 0.75 % gel Apply twice daily to rosacea 45 g 3 07/28/20 25 026 Active losartan (COZAAR) 25 mg tablet TAKE 1 TABLET BY MOUTH 1 TIME EACH DAY. 90 tablet 1 09/14/20 25 Active sertraline (ZOLOFT) 100 mg tablet TAKE 1 TABLET BY MOUTH 1 TIME EACH DAY. 90 tablet 1 09/14/20 25 Active sertraline (ZOLOFT) 100 mg tablet TAKE 1 TABLET DAILY 90 tablet 1 03/22/20 25 025 Discontinued losartan (COZAAR) 25 mg tablet TAKE 1 TABLET DAILY 90 tablet 1 03/22/20 25 025 Discontinued Active Problems Problem Noted Date Diagnosed Date Insomnia 10/29/2024 Abnormal EKG 08/14/2021 CHF (congestive heart failure) 08/14/2021 Overview (06/29/2025): 05/16/25 TRANSTHORACIC ECHOCARDIOGRAM (TTE) COMPLETE (CONTRAST/BUBBLE/3D PRN) 05/23/2025 05/16/2025 Interpretation Summary Left ventricle cavity size is normal. There is mild hypertrophy. Systolic function is normal with an ejection fraction of 55-60%. There are no regional LV wall motion abnormalities Biatrial dilatation No hemodynamically significant valvular dysfunction Compared to the prior study from 2020, there has been no significant change Signed by: Bradford Martin MD on 05/23/2025 11:05 AM Assessment & Plan (06/29/2025 1:00 PM EDT): Echocardiogram from 2024 showed pEF. Aside from lower extremity edema, he appears compensated on exam. Edema likely secondary to venous insufficiency. Continue with atenolol, furosemide, losartan. Consider adding SGLT2 inhibitor. We reviewed heart failure management including low-sodium diet, symptom surveillance, daily weights and medication compliance. The patient is aware they may take extra diuretic for intermittent evidence of mild congestive signs and symptoms. If the increase of frequency of as needed diuretic becomes more regular than they will make our office aware. If the patient has weight gain over 3lbs in one day or 5lbs over several days, they are aware to contact our office. With any severe or sustained symptoms, they are aware to contact EMS via 911 and go to the emergency room. SOB (shortness of breath) 08/14/2021 Assessment & Plan (06/29/2025 1:00 PM EDT): Echocardiogram reassuring. Improved with weight loss. Continue with current medications and no further workup. We discussed risk reduction through lifestyle choices including healthy diet, routine exercise and weight management. Assessment & Plan (11/16/2024 3:21 PM EST): [...] order panel; Future Alcohol dependence in remission 08/03/2020 Assessment & Plan (11/16/2024 3:21 PM EST): I have encouraged the patient to reduce alcohol consumption. I will be rechecking his echocardiogram to rule out the development of systolic dysfunction. 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 No significant valve disease. Patient has persistent atrial fibrillation treated with rate control and anticoagulation in the form of Eliquis. Assessment & Plan (06/29/2025 1:00 PM EDT): Longstanding persistent atrial fibrillation. Asymptomatic and rate controlled. CHADSVASc - 4. Continue with apixaban and atenolol.Orders: ECG 12 lead Assessment & Plan (04/06/2025 10:28 AM EDT): [...] 01/17/2006 Overview (07/05/2024): 04/30--Abnormal mibi, Cath neg Essential hypertension, benign 01/17/2006 Overview (11/15/2024): Longstanding HTN with a favorable response to medical therapy. Excessive salt ingestion has likely been a contributor. Assessment & Plan (06/29/2025 1:00 PM EDT): Controlled. Continue with atenolol, furosemide, losartan. Assessment & Plan (11/16/2024 3:21 PM EST): We will continue the present medical therapy. I had an extensive conversation with the patient regarding sodium consumption and the presence of sodium and foods which are commonly ingested in his diet. Orders: ECG 12 lead Pure hypercholesterolemia 01/17/2006 Assessment & Plan (06/29/2025 1:00 PM EDT): Lab Results Component Value Date CHOL 110 04/07/2025 CHOL 134 02/24/2024 Lab Results Component Value Date HDL 38 (L) 04/07/2025 HDL 42 02/24/2024 Lab Results Component Value Date LDLCALC 48 04/07/2025 Lab Results Component Value Date TRIG 119 04/07/2025 TRIG 142 02/24/2024 Lab Results Component Value Date CHOLHDL 2.9 04/07/2025 Continue with atorvastatin. Assessment & Plan (04/06/2025 10:28 AM EDT): Orders: Lipid panel with reflex to direct LDL; Future Encounters Date Type Department Care Team Description 07/28/2025 3:30 PM EDT Office Visit Internal Medicine - [address] [place] [address] Fredrick Corral MD Essential (primary) hypertension (Primary Dx); Acne rosacea from Last 3 Months Immunizations Immunization Administration Dates Next Due Influenza trivalent, with pr eservative (Fluzone; Afluria) 6mo and older 08/23/2024 Bettery SARS-CoV-2 COVID-19, mRNA, LNP-S, preservative free 08/23/2024 [...] Not Answered Alcohol Use Standard Drinks/Week Comments Not Currently 0 (1 standard drink = 0.6 oz pur e alcohol) Sex and Gender Information Value Date Recorded Sex Assigned at Not on file Legal Sex Male 6:08 PM EST Gender Identity Not on file Sexual Orientation Not on file Last Filed Vital Signs Vital Sign Reading Time Taken Comments Blood Pressure 116/60 07/28/2025 3:38 PM EDT Pulse 74 07/28/2025 3:38 PM EDT Temperature 36.2 C (97.1 F) 07/28/2025 3:38 PM EDT Respiratory Rate 20 06/16/2025 3:36 PM EDT Oxygen Saturation 97% 07/28/2025 3:38 PM EDT Inhaled Oxygen Concentration - - Weight 94.3 kg (207 lb 12.8 oz) 07/28/2025 3:38 PM EDT Height 180.3 cm (5' 11 ) 07/28/2025 3:38 PM EDT Body Mass Index 28.98 07/28/2025 3:38 PM EDT Plan of Treatment Health Maintenance Due Date Last Done Comments Hepatitis A Vaccines (1 of 2 - Risk 2-dose series) 1974 Social Influencers of Health Screening 10/05/2022 Diabetes: Annual Foot Exam 11/07/2023 11/07/2022 Colorectal Cancer Screening: Colonoscopy 08/16/2025 08/16/2015 Diabetes: Blood Sugar Control Test (HGBA1C) 10/07/2025 04/07/2025, 10/29/2024, 06/25/2024, Additional history exists COVID-19 Vaccine ( season) 2026 07/15/2025, 08/23/2024, 08/11/2023, Additional history exists Diabetes: Annual Retina Eye [...] Completed 09/10/2023 Depression Screening Completed 04/05/2025, 10/15/20 23 Influenza Vaccine Completed 07/15/2025, , 08/11/2023, Additional history exists HIB Vaccines Aged Out No longer eligi [...] complication, without long-term current use of insulin ([facility] V24, [facility] V28) Primary hypertension COMPREHENSIVE METABOLIC PANEL Routine 04/07/2025 10:18 AM EDT Type 2 diabetes mellitus without complication, without long-term current use of insulin ([facility] V24, [facility] V28) Primary hypertension HEMOGLOBIN A1C Routine 04/07/2025 10:18 AM EDT Type 2 diabetes mellitus without complication, without long-term current use of insulin ([facility] V24, [facility] V28) LIPID PANEL WITH REFLEX TO DIRECT LDL Routine 04/07/2025 10:18 AM EDT Pure hypercholesterolemia EXTERNAL DIABETIC RETINA EYE EXAM 02/17/2025 DEPRESSION SCREENING Routine 10/15/2023 FALLS RISK ASSESSMENT Routine 10/15/2023 DIABETES FOOT EXAM Routine 11/07/2022 COLONOSCOPY Routine 08/16/2015 HEPATITIS C SCREENING Routine 08/26/2013 from Last 3 Months or Most Recently Relevant to Health Maintenance Results * (ABNORMAL) Microalbumin creatinine urine ratio (04/07/2025 10:54 AM EDT) Creatinine, Urine 148.0 mg/dL LAB CHEMISTRY METHOD 04/07/2025 12:49 PM EDT [facility] Microalb, Ur 41.4(H) 0.0 - 29.0 mg/L LAB CHEMISTRY METHOD 04/07/2025 12:49 PM EDT [facility] Microalb/Crea t Ratio 28 <30 mg/g creat LAB CHEMISTRY METHOD 04/07/2025 12:49 PM EDT [facility] Urine Urine specimen obtained by clean catch procedure / Unknown Non-blood Collection / Unknown 04/07/2025 10:54 AM EDT 04/07/2025 10:54 AM EDT us Shruthi FREEDMAN LAB URINE ORDERABLES Fin al Result [facility] [address] [place] [address], [place] [phone] * (ABNORMAL) Lipid panel with reflex to direct LDL (04/07/2025 10:18 AM EDT) Cholesterol 110 0 - 200 mg/dL LAB CHEMISTRY METHOD 04/07/2025 1:04 PM [facility] Triglycerides 119 0 - 150 mg/dL LAB CHEMISTRY METHOD 04/07/2025 1:04 PM [facility] HDL 38(L) >=40 mg/dL LAB CHEMISTRY METHOD 04/07/2025 1:04 PM [facility] LDL Calculated 48 0 - 100 mg/dL LAB CHEMISTRY METHOD 04/07/2025 1:04 PM [facility] VLDL Cholesterol Brad 23.8 mg/dL LAB CHEMISTRY METHOD 04/07/2025 1:04 PM [facility] Non HDL Chol. (LDL+VLDL) 72 <145 mg/dL LAB CHEMISTRY METHOD 04/07/2025 1:04 PM [facility] Chol/HDL Ratio 2.9 0.0 - 4.4 LAB CHEMISTRY METHOD 04/07/2025 1:04 PM [facility] Blood Venous blood specimen / Unknown Venipuncture / Unknown 04/07/2025 10:18 AM EDT 04/07/2025 10:18 AM EDT Shruthi FREEDMAN LAB BLOOD ORDERABLES Fin al Result [facility] [address] [place] [address], [place] [phone] * Hemoglobin A1c (04/07/2025 10:18 AM EDT) Pathologist [facility] Hemoglobin A1C 6.0 <6.5 % LAB CHEMISTRY METHOD 04/07/2025 1:55 PM EDT [facility] Mean Bld Glu Estim. 126 mg/dL LAB CHEMISTRY METHOD 04/07/2025 1:55 PM EDT [facility] Blood Venous blood specimen / Unknown Venipuncture / Unknown 04/07/2025 10:18 AM EDT 04/07/2025 10:18 AM EDT Shruthi FREEDMAN LAB BLOOD ORDERABLES Fin al Result Performing Organization Address [facility]/ZIP Co de Phone Number [facility] [address] [place] [address], [place] [phone] * (ABNORMAL) Comprehensive metabolic panel (04/07/2025 10:18 AM EDT) [facility] Sodium 137 133 - 145 mmol/L LAB CHEMISTRY METHOD 04/07/2025 1:04 PM EDT [facility] Potassium 4.0 3.5 - 5.5 mmol/L LAB CHEMISTRY METHOD 04/07/2025 1:04 PM EDT [facility] Chloride 100 96 - 110 mmol/L LAB CHEMISTRY METHOD 04/07/2025 1:04 PM EDT [facility] CO2 31 21 - 32 mmol/L LAB CHEMISTRY METHOD 04/07/2025 1:04 PM EDT [facility] Anion Gap 6 3 - 11 LAB CHEMISTRY METHOD 04/07/2025 1:04 PM [facility] Glucose 121(H) 70 - 100 mg/dL LAB CHEMISTRY METHOD 04/07/2025 1:04 PM [facility] BUN 9 5 - 25 mg/dL LAB CHEMISTRY METHOD 04/07/2025 1:04 PM [facility] Creatinine 0.88 0.70 - 1.30 mg/dL LAB CHEMISTRY METHOD 04/07/2025 1:04 PM [facility] eGFR 91 >=60 mL/min/1. 73m2 LAB CHEMISTRY METHOD 04/07/2025 1:04 PM [facility] Comment:Calculation based on the Chronic Kidney Disease Epidemiology Collaboration (CKD-EPI) equation refit without adjustment for race. BUN/Creatinine Ratio 10.2 LAB CHEMISTRY METHOD 04/07/2025 1:04 PM [facility] Calcium 8.8 8.5 - 10.5 mg/dL LAB CHEMISTRY METHOD 04/07/2025 1:04 [facility] AST (SGOT) 22 10 - 42 unit/L LAB CHEMISTRY METHOD 04/07/2025 1:04 [facility] ALT (SGPT) 29 10 - 60 unit/L LAB CHEMISTRY METHOD 04/07/2025 1:04 PM [facility] Alkaline Phosphatase 102 42 - 121 unit/L LAB CHEMISTRY METHOD 04/07/2025 1:04 PM [facility] Total Protein 6.4 6.0 - 8.0 g/dL LAB CHEMISTRY METHOD 04/07/2025 1:04 [facility] Albumin 3.7 3.2 - 5.0 g/dL LAB CHEMISTRY METHOD 04/07/2025 1:04 [facility] Total Bilirubin 0.6 0.0 - 1.4 mg/dL LAB CHEMISTRY METHOD 04/07/2025 1:04 [facility] Blood Venous blood specimen / Unknown Venipuncture / Unknown 04/07/2025 10:18 AM EDT 04/07/2025 10:18 AM EDT Shruthi FREEDMAN LAB BLOOD ORDERABLES Fin al Result [facility] ([facility]) [facility] [address] [place] [address], * External Diabetic Retina Eye Exam Report (02/17/2025) Anatomical Region Laterality Modality Ultrasound Provider [facility] US PROCEDURES Final Result * Falls Risk Assessment (10/15/2023) [facility] Falls Risk Assessment Abstracted Historical Provider HEALTH MAINTENANCE Final Result * Depression Screening (10/15/2023) Pathologist [facility] Depression Screening 1 yr fu Historical Provider HEALTH MAINTENANCE Final Result * Diabetes Foot Exam (11/07/2022) Pathologist [facility] Diabetes: Annual Foot Exam 1 yr fu Historical Provider HEALTH MAINTENANCE Final Result * Colonoscopy (08/16/2015) Pathologist [facility] Colonoscopy 10 yr fu Anatomical Region Laterality Modality Other Historical Provider HEALTH MAINTENANCE Final Result * Hepatitis C Screening (08/26/2013) Pathologist [facility] Hepatitis C Screening neg Historical Provider HEALTH MAINTENANCE Final Result from Last 3 Months or Most Recently Relevant to Health Maintenance Insurance [facility] Care Teams Contact Manager Relationship Specialty Start Date End Date Fredrick Corral MD [address] [address] PCP - General 04/08/24
== END 2025-10-04 15:02 | disposition home or self-care (01) ==
LOC: HO.HSM 14:45
PROVIDERS: PCP Internal Medicine; Visit Provider Registered Nurse
DX: G31.2 Degeneration of nervous system due to alcohol (principal); F10.20 Alcohol dependence, uncomplicated
CPT/HCPCS: 99213

== ENCOUNTER → 2025-10-04 14:44 | Outpatient (BNVA) | payer MEDICARE, BC, SELFPAY | PROVIDERS: PCP Internal Medicine; Visit Provider Registered Nurse | DX: G31.2 Degeneration of nervous system due to alcohol (principal); F10.20 Alcohol dependence, uncomplicated | CPT/HCPCS: 99212 ==